=== PATIENT | male | born 1950 | race Caucasian/White ===

== ENCOUNTER 2016-12-22 17:09 | Emergency (ER) | payer OTHER ==
[2016-12-22 17:21] VITALS: RESP 18; O2SAT 99
[2016-12-22 17:46] LABS: BASO % 0.6 % (0.0-2.0); EOS # 0.1 K/uL (0.0-0.7); EOS % 1.4 % (0.0-4.0); HEMATOCRIT 38.6 % (35.0-51.0); LYMPH # 1.7 K/uL (1.0-4.3); LYMPH % 22.7 % (20.0-40.0); MEAN CELL VOLUME 83.7 fL (80.0-94.0); MEAN CORPUSCULAR HGB CONC 32.2 g/dL (33.0-37.0); MEAN PLATELET VOLUME 10.5 fL (7.2-11.7); MONO # 0.7 K/uL (0.0-0.8); MONO % 9.7 % (0.0-10.0); RED CELL DISTRIBUTION WIDTH 13.5 % (11.5-14.5); WHITE BLOOD COUNT 7.5 K/uL (4.8-10.8)
--- NOTE | 2016-12-22 17:46 | C.PDOC ---
History Of Present Illness 66-year-old male, presents to the emergency department with complaints of generalized weakness and nausea. Patient states that this morning he had coffee with sugar, and went to work. After work, he felt like his left arm was cold. Patient has a Hx of pre-diabetes and hypertension. Patient denies chest pain, shortness of breath, abdominal pain, fever, cough, dysuria, or any other associated symptoms. No other complaints at this time. Time Seen by Provider: 12/22/16 17:16 Chief Complaint (Nursing): Upper Extremity Problem/Injury History Per: Patient History/Exam Limitations: no limitations Onset/Duration Of Symptoms: Hrs Current Symptoms Are (Timing): Still Present Past Medical History Reviewed: Historical Data, Nursing Documentation, Vital Signs Vital Signs: Last Vital Signs Temp 97.4 F L 12/22/16 18:31 Pulse 75 12/22/16 18:31 Resp 18 12/22/16 18:31 BP 144/86 12/22/16 18:31 Pulse Ox 99 12/22/16 18:31 - Medical History PMH: Benign Prostatic Hyperplasia, Diabetes, HTN, Hypercholesterolemia Family History: States: No Known Family Hx - Social History Hx Tobacco Use: No Hx Alcohol Use: No Hx Substance Use: No - Immunization History Hx Tetanus Toxoid Vaccination: No Hx Influenza Vaccination: No Hx Pneumococcal Vaccination: No Review Of Systems Except As Marked, All Systems Reviewed And Found Negative. Constitutional: Positive for: Weakness. Negative for: Fever, Chills Cardiovascular: Negative for: Chest Pain, Palpitations Respiratory: Negative for: Cough, Shortness of Breath Gastrointestinal: Positive for: Nausea. Negative for: Abdominal Pain, Diarrhea , Melena Neurological: Positive for: Weakness. Negative for: Numbness, Headache, Dizziness Physical Exam - Physical Exam Appears: Non-toxic, No Acute Distress Skin: Warm, Dry, No Rash Head: Atraumatic, Normacephalic Eye(s): bilateral: Normal Inspection, PERRL Nose: Normal Oral Mucosa: Moist Lips: Normal Appearing Neck: Normal ROM Chest: Symmetrical Cardiovascular: Rhythm Regular, No Murmur Respiratory: Normal Breath Sounds, No Accessory Muscle Use Extremity: Normal ROM Neurological/Psych: Oriented x3 ED Course And Treatment - Laboratory Results Result Diagrams: 12/22/16 17:43 12/22/16 17:43 O2 Sat by Pulse Oximetry: 99 Progress Note: CMP, CBC, and Accuchek ordered and reviewed. Progress: Patient is resting comfortably, and is in no acute distress. Patient was instructed to follow up with physician/clinic in 1-2 days for further evaluation. Disposition Counseled Patient/Family Regarding: Diagnosis, Need For Followup - Disposition Referrals: Ky Cat [Medical Doctor] - Disposition: HOME/ ROUTINE Disposition Time: 18:15 Condition: STABLE Forms: General Discharge Instructions Print Language: ROMANIAN - POA Present On Arrival: None - Clinical Impression Clinical Impression: General medical exam - Scribe Statement The provider has reviewed the documentation as recorded by the Scribe Yoanna Miller All medical record entries made by the Scribe were at my direction and personally dictated by me. I have reviewed the chart and agree that the record accurately reflects my personal performance of the history, physical exam, medical decision making, and the department course for this patient. I have also personally directed, reviewed, and agree with the discharge instructions and disposition.
[2016-12-22 17:58] LABS: CHLORIDE 100 mmol/L (98-107); POTASSIUM 3.9 mmol/L (3.6-5.2); SODIUM 138 mmol/L (132-148)
[2016-12-22 18:00] LABS: ALB/GLOB RATIO 1.3 (1.0-2.1); ALKALINE PHOSPHATASE 75 U/L (38-126); AST/SGOT 40 U/L (17-59); BILIRUBIN,TOTAL 0.6 mg/dL (0.2-1.3); CARBON DIOXIDE 29 mmol/L (22-30); GFR AFRICAN-AMERICAN > 60; TOTAL PROTEIN 6.9 g/dL (6.3-8.3)
[2016-12-22 18:01] LABS: ALT/SGPT 33 U/L (21-72); BLOOD UREA NITROGEN 20 mg/dL (9-20); CALCIUM 8.9 mg/dl (8.6-10.4); GLUCOSE,RANDOM 131 mg/dL (75-110)
[2016-12-22 18:31] VITALS: BP 144/86; PULSE 75; TEMP 97.4
== END 2016-12-22 19:01 | disposition home or self-care (01) ==
LOC: C.ER 17:09
DX: Z00.00 Encounter for general adult medical examination without abnormal findings (principal)

== ENCOUNTER 2017-02-03 23:17 | Emergency (ER) | payer OTHER ==
[2017-02-03 23:36] VITALS: BP 157/77; PULSE 72; RESP 20; TEMP 98; O2SAT 96
[2017-02-04] MEDS ORDERED: Amoxicillin-Clav 875-125 mg Tab PO STA (00:09)
[2017-02-04] MEDS ORDERED: Amoxicillin-Clav 875-125 mg Tab PO ONE (00:16)
--- NOTE | 2017-02-04 00:27 | C.PDOC ---
History Of Present Illness 66 year old male who presents to the ER with a complaint of headache that he describes at facial pressure, associated with nasal congestion, for the past 2- 3 days. Patient states he took claritin and naprosyn with improvement; however, he still wanted to be evaluated. Denies fever, chills, nausea, or vomiting. Time Seen by Provider: 02/03/17 23:52 Chief Complaint (Nursing): Headache History Per: Patient History/Exam Limitations: no limitations Onset/Duration Of Symptoms: Days Current Symptoms Are (Timing): Still Present Preceeding Symptoms: None Associated Symptoms: denies: Nausea, Vomiting Recent travel outside of the [place]: No Past Medical History Reviewed: Historical Data, Nursing Documentation, Vital Signs Vital Signs: Last Vital Signs Temp 98 F 02/03/17 23:32 Pulse 72 02/03/17 23:32 Resp 20 02/03/17 23:32 BP 157/77 H 02/03/17 23:32 Pulse Ox 96 02/04/17 05:38 - Medical History PMH: Benign Prostatic Hyperplasia, Diabetes, HTN, Hypercholesterolemia Surgical History: No Surg Hx Family History: States: Unknown Family Hx - Social History Hx Tobacco Use: No Hx Alcohol Use: No Hx Substance Use: No - Immunization History Hx Tetanus Toxoid Vaccination: No Hx Influenza Vaccination: No Hx Pneumococcal Vaccination: No Review Of Systems Constitutional: Negative for: Fever, Chills ENT: Positive for: Nose Congestion Gastrointestinal: Negative for: Nausea, Vomiting Neurological: Positive for: Headache Physical Exam - Physical Exam Appears: Non-toxic, No Acute Distress Skin: Normal Color, Warm, Dry Head: Atraumatic, Normacephalic, Tenderness (to left sided frontal and maxillary sinuses) Eye(s): bilateral: Normal Inspection, PERRL, EOMI Ear(s): Bilateral: Normal Oral Mucosa: Moist Throat: Normal, No Erythema, No Exudate Neck: Normal, Supple Chest: Symmetrical, No Tenderness Cardiovascular: Rhythm Regular, No Murmur Respiratory: Normal Breath Sounds, No Rales, No Rhonchi, No Wheezing Neurological/Psych: Oriented x3, Normal Speech, Normal Cognition ED Course And Treatment O2 Sat by Pulse Oximetry: 96 (Room air) Pulse Ox Interpretation: Normal Medical Decision Making Medical Decision Making: Plan: * Augmentin * Prednisone On reevaluation, patient's pain has improved, Rx given and advised to follow up with PMD. Disposition - Disposition Referrals: Ky Cat [Medical Doctor] - Disposition: HOME/ ROUTINE Disposition Time: 00:25 Condition: FAIR Additional Instructions: Follow up with the medical doctor within 1-2 days. Return if worsened. Prescriptions: Amoxicillin/Clavulanate [Augmentin 875 MG-125 MG] 1 tab PO BID #14 tab Ibuprofen [Motrin] 600 mg PO TID #21 tab Loratadine [Claritin] 10 mg PO DAILY #10 tab predniSONE [Prednisone] 10 mg PO BID #10 tab Instructions: Sinusitis (ED) Forms: Motility Count (Citizen Of [place]) Print Language: ICELANDIC - Clinical Impression Clinical Impression: Sinusitis - Scribe Statement The provider has reviewed the documentation as recorded by the Scribjim Coyle All medical record entries made by the Jaidenibjim were at my direction and personally dictated by me. I have reviewed the chart and agree that the record accurately reflects my personal performance of the history, physical exam, medical decision making, and the department course for this patient. I have also personally directed, reviewed, and agree with the discharge instructions and disposition.
== END 2017-02-04 00:27 | disposition home or self-care (01) ==
LOC: C.ER 23:17
DX: J32.9 Chronic sinusitis, unspecified (principal)

== ENCOUNTER 2017-06-03 17:05 | Inpatient (IN) | payer OTHER, MEDICARE ==
[2017-06-03] MEDS ORDERED: Tetracaine 0.5% Ophth 2 ML BOTTLE OS ONE (17:16)
--- NOTE | 2017-06-03 17:16 | C.PDOC ---
History Of Present Illness 67M c/o left side headache he woke up with yesterday. it is still present but improved since he took aleve earlier. he denies any eye pain or visual disturbance to me. he hit the left side of his head [address] [place] and had a CT at that time but does not feel this is related. Time Seen by Provider: 06/03/17 17:16 Chief Complaint (Nursing): Eye Problem Past Medical History Vital Signs: Last Vital Signs Temp 98.2 F 06/12/17 08:36 Pulse 83 06/12/17 08:36 Resp 20 06/12/17 08:36 BP 122/80 06/12/17 08:36 Pulse Ox 95 06/12/17 08:36 - Medical History PMH: Benign Prostatic Hyperplasia, Diabetes, HTN, Hypercholesterolemia Family History: States: Other Other Family History: nc - Social History Hx Tobacco Use: No Hx Alcohol Use: No Hx Substance Use: No - Immunization History Hx Tetanus Toxoid Vaccination: No Hx Influenza Vaccination: No Hx Pneumococcal Vaccination: No Review Of Systems Except As Marked, All Systems Reviewed And Found Negative. Constitutional: Negative for: Fever, Chills, Weakness, Malaise Eyes: Negative for: Vision Change, Redness Respiratory: Negative for: Cough, Shortness of Breath Gastrointestinal: Negative for: Nausea, Vomiting Neurological: Positive for: Headache. Negative for: Weakness, Numbness, Confusion, Seizures, Altered Mental Status, Dizziness Physical Exam - Physical Exam Appears: Well, Non-toxic, No Acute Distress Skin: Warm, Dry Head: Atraumatic, No Tenderness Eye(s): bilateral: PERRL, EOMI Nose: No Epistaxis Oral Mucosa: Moist Lips: No Swelling Neck: No Midline Cervical Tenderness, Supple Cardiovascular: Rhythm Regular Respiratory: No Accessory Muscle Use Extremity: No Swelling Neurological/Psych: Oriented x3, Normal Cranial Nerves, No Cerebellar Signs, Normal Motor, Normal Sensation, Other (no focal deficits) Gait: Steady ED Course And Treatment - Laboratory Results Result Diagrams: 06/08/17 06:29 06/08/17 06:29 O2 Sat by Pulse Oximetry: 99 Medical Decision Making Medical Decision Makin disc NSGY Dr Mccall who reviewed CT- will see as consult rec repeat ct in am disc results and plan w the pts daughter over the phone and with the pt using lobster man CT Head EXAM: CT Head Without Intravenous Contrast CLINICAL HISTORY: 67 years old, male; Pain; Headache; Additional info: Left side headache TECHNIQUE: Axial computed tomography images of the head/brain without intravenous contrast. All CT scans at this facility use one or more dose reduction techniques, viz.: automated exposure control; ma/kV adjustment per patient size (including targeted exams where dose is matched to indication; i.e. head); or iterative reconstruction technique. Coronal and sagittal reformatted images were created and reviewed. COMPARISON: No relevant prior studies available. FINDINGS: Brain: Predominantly isodense subdural hematoma along LEFT cerebral convexity, up to 0.9 cm in width (axial image 35). Sulcal effacement. Patent basilar cisterns. No mass. Grossly preserved downing-white matter differentiation. Midline shift: 0.5 cm LEFT to RIGHT shift. Ventricles: No hydrocephalus. Bones/joints: No acute fracture. Soft tissues: Unremarkable. Sinuses: Scattered mild mucosal thickening of ethmoid sinuses. Mastoid air cells: No mastoid effusion. Orbits: Unremarkable as visualized. IMPRESSION: 1. LEFT subdural hematoma with subfalcine herniation. 2. Incidental/non-acute findings are described above. Disposition - Disposition Disposition: HOSPITALIZED Disposition Time: 18:51 Condition: STABLE - Clinical Impression Clinical Impression: Subdural hematoma
[2017-06-03] MEDS ORDERED: Fluorescein 1 mg Ophthalmic Strip ONE (17:27)
[2017-06-03] MEDS ORDERED: Tetracaine 0.5% Ophth (OR ONLY) ONE (17:27)
--- NOTE | 2017-06-03 18:48 | CT ---
EXAM: CT Head Without Intravenous Contrast CLINICAL HISTORY: 67 years old, male; Pain; Headache; Additional info: Left side headache TECHNIQUE: Axial computed tomography images of the head/brain without intravenous contrast. All CT scans at this facility use one or more dose reduction techniques, viz.: automated exposure control; ma/kV adjustment per patient size (including targeted exams where dose is matched to indication; i.e. head); or iterative reconstruction technique. Coronal and sagittal reformatted images were created and reviewed. COMPARISON: No relevant prior studies available. FINDINGS: Brain: Predominantly isodense subdural hematoma along LEFT cerebral convexity, up to 0.9 cm in width (axial image 35). Sulcal effacement. Patent basilar cisterns. No mass. Grossly preserved downing-white matter differentiation. Midline shift: 0.5 cm LEFT to RIGHT shift. Ventricles: No hydrocephalus. Bones/joints: No acute fracture. Soft tissues: Unremarkable. Sinuses: Scattered mild mucosal thickening of ethmoid sinuses. Mastoid air cells: No mastoid effusion. Orbits: Unremarkable as visualized. IMPRESSION: 1. LEFT subdural hematoma with subfalcine herniation. 2. Incidental/non-acute findings are described above.
[2017-06-03 18:55] LABS: BASO % 0.4 % (0.0-2.0); EOS # 0.2 K/uL (0.0-0.7); EOS % 2.5 % (0.0-4.0); HEMATOCRIT 38.2 % (35.0-51.0); LYMPH # 1.6 K/uL (1.0-4.3); LYMPH % 21.5 % (20.0-40.0); MEAN CELL VOLUME 84.5 fL (80.0-94.0); MEAN CORPUSCULAR HEMOGLOBIN 27.4 pg (27.0-31.0); MEAN CORPUSCULAR HGB CONC 32.4 g/dL (33.0-37.0); MEAN PLATELET VOLUME 12.5 fL (7.2-11.7); MONO # 0.6 K/uL (0.0-0.8); MONO % 8.8 % (0.0-10.0); RED CELL DISTRIBUTION WIDTH 14.1 % (11.5-14.5); WHITE BLOOD COUNT 7.2 K/uL (4.8-10.8)
[2017-06-03 19:01] LABS: ALKALINE PHOSPHATASE 88 U/L (38-126); ALT/SGPT 34 U/L (21-72); AST/SGOT 23 U/L (17-59); BILIRUBIN,TOTAL 0.5 mg/dL (0.2-1.3); BLOOD UREA NITROGEN 18 mg/dL (9-20); CALCIUM 8.7 mg/dl (8.6-10.4); CARBON DIOXIDE 29 mmol/L (22-30); CHLORIDE 99 mmol/L (98-107); GFR AFRICAN-AMERICAN > 60; GLUCOSE,RANDOM 171 mg/dL (75-110); SODIUM 134 mmol/L (132-148); TOTAL PROTEIN 6.2 g/dL (6.3-8.3)
[2017-06-03 19:02] LABS: INR 1.3
[2017-06-03 19:05] LABS: ALB/GLOB RATIO 1.4 (1.0-2.1)
[2017-06-03] MEDS: Sodium Chloride 0.9% 1,000 ML IV SCH (19:33)
[2017-06-03] MEDS ORDERED: Sodium Chloride 0.9% 1,000 ML ONE (19:40)
[2017-06-04] MEDS ORDERED: Sodium Chloride 0.9% 1,000 ML ONE (05:08)
[2017-06-04] MEDS: Sodium Chloride 0.9% 1,000 ML IV SCH ×2 (06:53→22:17)
[2017-06-04 06:56] LABS: ALCOHOL SERUM < 10 mg/dl (0-10); ALKALINE PHOSPHATASE 71 U/L (38-126); ALT/SGPT 34 U/L (21-72); AST/SGOT 21 U/L (17-59); BILIRUBIN,TOTAL 0.7 mg/dL (0.2-1.3); CHOLESTEROL 190 mg/dL (0-199); TOTAL PROTEIN 5.9 g/dL (6.3-8.3)
[2017-06-04 07:24] LABS: FREE T4 0.86 ng/dL (0.78-2.19)
[2017-06-04 07:38] LABS: THYROID STIMULATING HORMONE 2.2 mIU/L (0.46-4.68)
[2017-06-04 07:54] LABS: ALB/GLOB RATIO 1.3 (1.0-2.1); BILIRUBIN,DIRECT 0.5 mg/dL (0.0-0.4)
--- NOTE | 2017-06-04 11:09 | CT ---
PROCEDURE: CT scan brain dated 06/04/2017. HISTORY: Subdural hematoma COMPARISON: Comparison made with CT scan of brain dated 05/30/2017. TECHNIQUE: Total exam DLP = 86.44 mGy-cm. FINDINGS: Current study reveals interval slight decrease size right-sided subdural hematoma with fluid - fluid level, more hyperdense packed red cells layering along the dependent portion of the collection and serum occupying the nondependent portion of collection. . There is mild mass effect with compression of the frontoparietal lobes former more so than latter. There is also some extension of subdural hematoma into the left lateral margin of middle cranial fossa a fracture left well. There is mild compression of left frontal horn with shift of the septum pellucidum 6.6 mm to the right (slightly increased from prior exam). . Slight localized dilatation of the temporal horn likely due partial trapping. . . There are no calvarial fractures. Paranasal and mastoid air complexes are clear. Orbits and contents unremarkable. IMPRESSION: Interval slight see decrease in size of left-sided subdural hematoma. Collection exhibits a fluid - fluid level with packed red cells layering the portion of the collection and serum occupying the nondependent portion of the collection. . The collection exerts mass effect which appears have increased slightly with compression of the left frontoparietal lobe occluded left lateral ventricle and shift of the septum pellucidum from left to right estimated at approximately 6.6 mm. There appears be mild localized with trapping of the left temporal horn.
[2017-06-04 11:20] LABS: HOMOCYSTEINE 5.6 umol/L (6.6-14.8)
[2017-06-04] MEDS: Pantoprazole 40 mg EC Tab PO SCH (12:15)
--- NOTE | 2017-06-04 12:51 | MRI ---
PROCEDURE: MRI BRAIN WITHOUT CONTRAST HISTORY: ich COMPARISON: Comparison is made to the previous CT dated 06/04/2017 and 05/2020 TECHNIQUE: Multiplanar, multisequence MR images of the brain were obtained without intravenous contrast enhancement. FINDINGS: HEMORRHAGE: Again seen is left convexity heterogeneous signal subdural hematoma. The posterior portion of the hematoma demonstrate foci of hyperintense T1 signal. The mid and anterior portion of the left convexity subdural demonstrate hyperintense T2 and isointense T1 signal. Findings suggestive of subacute on chronic subdural hematoma. DWI: No evidence of an acute or early subacute infarction. BRAIN PARENCHYMA: There is mass effect on the left brain due to subdural hematoma associated with 5.5 millimeter [id number] midline shift. There is effacement of the left brain sulci due to mass effect by that subdural hematoma. No evidence of mass lesion. There are few scattered foci of hyperintense T2 and hypointense T1 and FLAIR signal noted in the white matter more prominent at the left frontal lobe may represent dilated perivascular space. There are also few subcortical small foci of hyperintense T2 and FLAIR signal and isointense T1 signal may represent mild chronic microvascular ischemic disease. VENTRICLES: Unremarkable. No hydrocephalus. CRANIUM: Unremarkable. ORBITS: Grossly unremarkable. PARANASAL SINUSES/MASTOIDS: Clear VASCULAR SYSTEM: Skull base flow voids intact. OTHER FINDINGS: None. IMPRESSION: Heterogeneous signal left convexity subdural hematoma with maximum thickness of 10 millimeter associated with mass effect on the left brain and 5.5 millimeter [id number] midline shift. The signal characteristic of the left convexity subdural hematoma suggestive of subacute on chronic hematoma. No evidence of acute infarction or mass lesion.
--- NOTE | 2017-06-04 13:02 | VASCLAB ---
PROCEDURE: HISTORY: Head trauma COMPARISON: None available. TECHNIQUE: Grayscale and duplex Doppler evaluation of the cervical carotid and vertebral arteries were performed. The common carotid, carotid bifurcations and cervical Internal Carotid Artery (ICA) and proximal External Carotid Artery (ECA) were evaluated. The vertebral arteries were evaluated for gross patency and flow direction. Report prepared by DEVON Ambrocio FINDINGS: RIGHT CAROTID ARTERIES: 1. Common Carotid Artery: No significant focal plaque formation of the right common carotid artery. Maximum Peak Systolic velocity: 83 cm/sec: End-diastolic velocity 16 cm/sec. 2. Carotid Bifurcation: Homogeneous plaque formation. Maximum Peak Systolic velocity: 64 cm/sec: End-diastolic velocity 14 cm/sec. 3. Internal Carotid Artery: Plaque description: Homogeneous 3.1. Proximal Segment: Peak systolic velocity 78 cm/sec: End-diastolic velocity 28 cm/sec - % stenosis 0-15% 3.2. Middle Segment: Peak systolic velocity 127 cm/sec: End-diastolic velocity 42 cm/sec - % stenosis 0-15% 3.3. Distal Segment: Peak systolic velocity 71 cm/sec: End-diastolic velocity 27 cm/sec - % stenosis 0-15% 4. External Carotid Artery: No significant focal plaque formation. Peak systolic velocity 80 cm/sec 5. ICA/CCA Ratio: 2.0 LEFT CAROTID ARTERIES: 1. Common Carotid Artery: No significant focal plaque formation of the left common carotid artery. Maximum Peak Systolic velocity: 85 cm/sec: End-diastolic velocity 23 cm/sec. 2. Carotid Bifurcation: Homogeneous plaque formation. Maximum Peak Systolic velocity: 63 cm/sec: End-diastolic velocity 18 cm/sec. 3. Internal Carotid Artery: Plaque description: Homogeneous 3.1. Proximal Segment: Peak systolic velocity 71 cm/sec: End-diastolic velocity 13 cm/sec - % stenosis 0-15% 3.2. Middle Segment: Peak systolic velocity 77 cm/sec: End-diastolic velocity 25 cm/sec - % stenosis 0-15% 3.3. Distal Segment: Peak systolic velocity 75 cm/sec: End-diastolic velocity 27 cm/sec - % stenosis 0-15% 4. External Carotid Artery: No significant focal plaque formation. Peak systolic velocity 60 cm/sec 5. ICA/CCA Ratio: 0.9 VERTEBRAL ARTERIES: 1. Right Vertebral Artery: The right vertebral artery flow direction is antegrade. 2. Left Vertebral Artery: The left vertebral artery flow direction is antegrade. OTHER FINDINGS: 1. Right Brachial Blood pressure: 160 mmHg. 2. Left Brachial Blood pressure: 135 mmHg. IMPRESSION: RIGHT: Duplex scan does not suggest hemodynamically significant stenosis of the right extracranial carotid arteries. LEFT: Duplex scan does not suggest hemodynamically significant stenosis of the left extracranial carotid arteries.
--- NOTE | 2017-06-04 16:25 | CON ---
DATE: 06/04/2017 NEUROLOGICAL INITIAL CONSULTATION LOCATION: The patient is in emergency room, bed 1. REASON FOR CONSULTATION: Headache. CHIEF COMPLAINT: The patient was brought into [facility] with a history of 2 days headache, which was 8/10 and they did CAT scan of the head, which was abnormal, and from neurological point of view, I was called into evaluate him for further management. HISTORY OF PRESENT ILLNESS: Mr. Han Wong is a 67-year-old, right-handed, male, in usual state of health; since last Sunday, the patient developed headache, which is 8/10 in pain scale, not associating with nausea or vomiting, visual or bulbar dysfunction. However, the headache, which he never had it before in the past, has been disabling him. No history of fall, no history of trauma, no history of involuntary movements associating with his headache. PAST MEDICAL HISTORY: Includes hypertension, prostate hypertrophy. PERSONAL HISTORY: He denies smoking, alcohol use. ALLERGIES: NO KNOWN ALLERGIES. REVIEW OF SYSTEMS: A 12-point systems had been reviewed; from neuro, new headache. MEDICATIONS: Losartan, Proscar. PHYSICAL EXAMINATION: VITAL SIGNS: Blood pressure 139/77, mean arterial pressure of 97, respiratory rate 18, temperature 98.4, pulse 69, regular. NECK: Supple. No carotid bruit. HEART: Sounds are regular. CHEST: Fair air entry. EXTREMITIES: No edema in legs. NEUROLOGICAL: Mental status examination: He is awake, alert, oriented to person, place and time. Speech is clear. Naming, repetition, fluency, comprehension, all within normal. Cranial nerves: Visual field intact. Pupils reactive to light. Extraocular movement normal. No nystagmus. No facial sensory deficit. No facial asymmetry. Hearing is normal. Tongue is midline. Good gag. Fundus examination: Disc is sharp. No abnormal blood vessels noted. Motor: Outstretched hand with eyes closed, no drift noted. Power is symmetric on either side. Deep tendon reflexes, biceps, brachialis, triceps are 2+ on either side, both knees are 1+, both ankles are absent. Plantars are downgoing. Sensory: Grossly intact. Coordination: Nngfnd-dspf-hpybnp test is intact. Gait normal. WORKUP: CT of the head reviewed by me. There is a left subdural hematoma, which seems to be subacute process with the size of less than a centimeter with mild subfalcine herniation to the right. EKG: Normal sinus rhythm. BLOOD WORKUP: WBC 7.2, hemoglobin 12.4, hematocrit is 38.2, platelets 131. PT 14.3, INR 1.3, PTT 31. Sodium 134, potassium 4.4, chloride 99, bicarbonate 29, BUN 18, GFR more than 60, glucose 171, calcium 8.7, protein 6.2. CONCLUSION: Mr. Han Wong is presenting with headache with abnormal CT of subdural hematoma without any long tract sign. RECOMMENDATION: 1. Short dose of Decadron to decrease the intracranial pressure. 2. MRI of the brain to assess the bleeding as well as to rule out any intracranial lesion. 3. Carotid Doppler and drug tox screen including alcohol level should be done. The patient will be followed closely while he is in the hospital. Seven Greene MD MTDD
--- NOTE | 2017-06-04 17:49 | CARD ---
APPROVED REPORT EKG Measurement Heart [id number] <Conclusion> Sinus rhythm with 1st degree AV block Otherwise normal ECG
--- NOTE | 2017-06-04 19:12 | CARD ---
APPROVED REPORT EXAM: Two-dimensional and M-mode echocardiogram with Doppler and color Doppler. Other Information Quality : GoodRhythm : INDICATION Dizziness and Vertigo RISK FACTORS Hypertension M-Mode DIMENSIONS RVDd1.22 (2.1-3.2cm)Left Atrium (MM)4.02 (2.5-4.0cm) IVSd0.74 (0.7-1.1cm)Aortic Root3.79 (2.2-3.7cm) LVDd4.94 (4.0-5.6cm)Aortic Cusp Exc.1.68 (1.5-2.0cm) PWd0.89 (0.7-1.1cm)FS (%) 34 % LVDs3.28 (2.0-3.8cm)LVEF (%)62 (>50%) Mitral Valve MV E Pvhfjekq37.3cm/sMV A Rlztjypt35.1cm/sE/A ratio1.1 TDI E/Lateral E'0.0E/Medial E'0.0 Tricuspid Valve TR Peak [id number]/sTR Peak Gr.[id number] LEFT VENTRICLE The left ventricle is normal size. There is normal left ventricular wall thickness. The Ejection Fraction is 60-65%. There is normal LV segmental wall motion. The left ventricular diastolic function is normal. RIGHT VENTRICLE The right ventricle is normal size. The right ventricular systolic function is normal. ATRIA The left atrium is mildly dilated. The right atrium size is normal. The interatrial septum is intact with no evidence for an atrial septal defect. AORTIC VALVE The aortic valve is normal in structure. The aortic valve is trileaflet. The aortic valve is mildly sclerotic. There is mild aortic regurgitation. MITRAL VALVE The mitral valve is normal in structure. Mitral regurgitation is mild. TRICUSPID VALVE The tricuspid valve is normal in structure. There is mild tricuspid regurgitation. Right ventricular systolic pressure is estimated at 35 mmHg. There is mild pulmonary hypertension. PULMONIC VALVE The pulmonary valve is normal in structure. There is mild pulmonic valvular regurgitation. GREAT VESSELS The aortic root is normal size. The aortic root displays mild sclerocalcific changes of the aortic root. The IVC is normal in size and collapses >50% with inspiration. PERICARDIAL EFFUSION There is no pericardial effusion. <Conclusion> The left ventricle is normal size. The Ejection Fraction is 60-65%. The left ventricular diastolic function is normal. The left atrium is mildly dilated. There is mild aortic regurgitation. Mitral regurgitation is mild. There is mild tricuspid regurgitation. Right ventricular systolic pressure is estimated at 35 mmHg. There is mild pulmonary hypertension. The aortic root is normal size. The aortic root displays mild sclerocalcific changes of the aortic root.
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
[2017-06-05] MEDS: Pantoprazole 40 mg EC Tab PO SCH (10:45)
--- NOTE | 2017-06-05 10:45 | EEG ---
DATE: 06/04/2017 This is a 16-channel electroencephalogram of an awake and adult. During the study, photic stimulation was performed. Hyperventilation was not performed. The resting electroencephalogram consists of 30 to 40 microvolts, diffuse 7 to 8 Hz high theta activities mixed with low alpha activities seen at parietal and occipital leads. Anteriorly, fast activity superimposed with 2 to 3 Hz delta activities seen. There is rhythmic polyspike and wave activities noted in bilateral cortical leads that lasted for about 2 to 2-1/2 seconds, followed with generalized slow activities, which consistent with possible epileptiform activities. The photic stimulation did not evoke driving response noted at 2-20 Hz. IMPRESSION: This is an abnormal electroencephalogram because of persistent slow activities for his age consistent with the bilateral cerebral dysfunction which is superimposed with brief period of generalized polyspike and wave activities consistent with epileptiform activities. Please correlate the findings with the neurological and radiological studies. If necessary, the patient can be benefitted of doing extended hour ambulatory electroencephalogram to further localizing his electrophysiological abnormal activities. This study can be done as outpatient. Seven Greene MD
[2017-06-05] MEDS: Sodium Chloride 0.9% 1,000 ML IV SCH ×2 (10:52→19:15)
--- NOTE | 2017-06-05 12:21 | PN ---
DATE: 06/05/2017 NEUROLOGICAL PROBLEM: Subdural hematoma with mild mass effect and headache. PHYSICAL EXAMINATION: VITAL SIGNS: Blood pressure 132/72, mean arterial pressure of 92, respiratory rate 16, temperature afebrile. The patient is asymptomatic at present. He denies complaints of headache. He is communicable only in [place]. His MRI of the brain consistent with subacute process of subdural hematoma without any acute bleed noted. The patient was started on short course of steroids to bring down the swelling and ICP. His electroencephalogram is reviewed that generalized polyspike and wave activities, briefly noted about 2 to 3 seconds. Considering his abnormal EEG, the patient was placed on levetiracetam 500 mg twice a day. From neurological point of view, the patient is stable. Fall precautions should be followed . The patient should have video electroencephalogram which can be done as an outpatient for further localizing his electrographic activities during his daytime as well as during sleep. Seven Greene MD [facility]
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
--- NOTE | 2017-06-05 12:45 | CP.PCM.PN ---
Subjective - Date & Time of Evaluation Date of Evaluation: 06/05/17 Time of Evaluation: 12:44 - Subjective Subjective: pt and family agreeable to surgery needed med clearance have him [facility] for surgery tomorrow Objective - Vital Signs/Intake and Output Vital Signs (last 24 hours): Temp Pulse Resp BP Pulse Ox 97.4 F L 70 20 139/78 96 06/05/17 09:02 06/05/17 09:02 06/05/17 09:02 06/05/17 09:02 06/05/17 09:02 Intake and Output: 06/05/17 06/05/17 06:59 18:59 Intake Total 664 Output Total 1000 Balance -336 - Medications Medications: Current Medications Dexamethasone (Decadron) 4 mg PO Q8H [facility] Stop: 06/07/17 06:50 Last Admin: 06/05/17 10:45 Dose: 4 mg Finasteride (Proscar) 5 mg PO DAILY [facility] Last Admin: 06/05/17 10:52 Dose: 5 mg Hydrochlorothiazide (Microzide) 12.5 mg PO DAILY [facility] Last Admin: 06/05/17 10:45 Dose: 12.5 mg Sodium Chloride (Sodium Chloride 0.9%) 1,000 mls @ 83 mls/hr IV .Q12H3M [facility] Last Admin: 06/05/17 10:52 Dose: 83 mls/hr Levetiracetam (Keppra) 500 mg PO BID [facility] Last Admin: 06/05/17 10:45 Dose: 500 mg Losartan Potassium (Cozaar) 50 mg PO DAILY [facility] Last Admin: 06/05/17 10:45 Dose: 50 mg Pantoprazole Sodium (Protonix Ec Tab) 40 mg PO DAILY [facility] Last Admin: 06/05/17 10:45 Dose: 40 mg - Labs Labs: 06/03/17 18:43 06/03/17 18:43 PT 14.3 SECONDS (9.7-12.2) H 06/03/17 18:43 INR 1.3 06/03/17 18:43 APTT 31 SECONDS (21-34) 06/03/17 18:43
--- NOTE | 2017-06-05 16:22 | CP.PCM.PN ---
Subjective - Date & Time of Evaluation Date of Evaluation: 06/05/17 Time of Evaluation: 13:00 - Subjective Subjective: clinically same Objective - Vital Signs/Intake and Output Vital Signs (last 24 hours): Temp Pulse Resp BP Pulse Ox 97.7 F 69 20 119/66 97 06/05/17 15:15 06/05/17 15:15 06/05/17 15:15 06/05/17 15:15 06/05/17 15:15 Intake and Output: 06/05/17 06/05/17 06:59 18:59 Intake Total 664 Output Total 1000 Balance -336 - Medications Medications: Current Medications Dexamethasone (Decadron) 4 mg PO Q8H [facility] Stop: 06/07/17 06:50 Last Admin: 06/05/17 16:05 Dose: 4 mg Finasteride (Proscar) 5 mg PO DAILY [facility] Last Admin: 06/05/17 10:52 Dose: 5 mg Hydrochlorothiazide (Microzide) 12.5 mg PO DAILY [facility] Last Admin: 06/05/17 10:45 Dose: 12.5 mg Sodium Chloride (Sodium Chloride 0.9%) 1,000 mls @ 83 mls/hr IV .Q12H3M [facility] Last Admin: 06/05/17 10:52 Dose: 83 mls/hr Levetiracetam (Keppra) 500 mg PO BID [facility] Last Admin: 06/05/17 10:45 Dose: 500 mg Losartan Potassium (Cozaar) 50 mg PO DAILY [facility] Last Admin: 06/05/17 10:45 Dose: 50 mg Pantoprazole Sodium (Protonix Ec Tab) 40 mg PO DAILY [facility] Last Admin: 06/05/17 10:45 Dose: 40 mg - Labs Labs: 06/03/17 18:43 06/03/17 18:43 PT 14.3 SECONDS (9.7-12.2) H 06/03/17 18:43 INR 1.3 06/03/17 18:43 APTT 31 SECONDS (21-34) 06/03/17 18:43 - Constitutional Appears: Well - Head Exam Head Exam: ATRAUMATIC, NORMAL INSPECTION, NORMOCEPHALIC - Eye Exam Eye Exam: EOMI, Normal appearance, PERRL Pupil Exam: NORMAL ACCOMODATION, PERRL - ENT Exam ENT Exam: Mucous Membranes Moist, Normal Exam - Neck Exam Neck Exam: Full ROM, Normal Inspection. absent: Lymphadenopathy - Respiratory Exam Respiratory Exam: Clear to Ausculation Bilateral, NORMAL BREATHING PATTERN - Cardiovascular Exam Cardiovascular Exam: REGULAR RHYTHM, +S1, +S2. absent: Murmur - GI/Abdominal Exam GI & Abdominal Exam: Soft, Normal Bowel Sounds. absent: Tenderness - Rectal Exam Rectal Exam: Deferred - Extremities Exam Extremities Exam: Full ROM, Normal Capillary Refill, Normal Inspection. absent : Joint Swelling, Pedal Edema - Back Exam Back Exam: NORMAL INSPECTION Assessment and Plan (1) Subdural hematoma Status: Acute (2) Dizziness Status: Acute (3) General medical exam Status: Acute (4) History of hypertension Status: Acute (5) Sinusitis Status: Acute (6) Uncontrolled hypertension Status: Acute (7) Upper extremity pain Status: Acute (8) Viral exanthem Status: Acute (9) Viral syndrome Status: Acute - Assessment and Plan (Free Text) Plan: Patient examined. EKG suggestive of first-degree AV block. CT had suggestive of left subdural hematoma with subfalcine herniation. MRI brain suggestive of subdural hematoma with maximum thickness of 10 mm with mass-effect on the left brain and 5.5 mm left to right midline shift suggestive of subacute on chronic hematoma. EEG suggestive of persistent slow activities for is it consistent with bilateral cerebellar dysfunction. 2D echo suggestive of EF of 60% left atrial dilatation, mild AR, mild MR, mild TR, RVSP 35 mmHg, mild pulmonary hypertension. Carotid duplex scan does not suggest any clinically significant stenosis. Continue hydrochlorothiazide and levetiracetam. Continue losartan. Continue supportive care.
[2017-06-06] MEDS: Pantoprazole 40 mg EC Tab PO SCH (09:10)
[2017-06-06] MEDS: Sodium Chloride 0.9% 1,000 ML IV SCH (09:11)
[2017-06-06] MEDS ORDERED: cefTRIAXone IV 1 gm in Dextros 0 ML IVPB ONE (10:59)
[2017-06-06] MEDS ORDERED: Thrombin Topical 20,000 Intl Units Spray Kit TOP ONE (10:59)
[2017-06-06] MEDS ORDERED: Bacitracin Ointment 30 GM TUBE ONE (10:59)
[2017-06-06] MEDS ORDERED: Absorbable Gelatin Sponge Size 100 ONE (10:59)
[2017-06-06] MEDS ORDERED: Thrombin Topical 5,000 IU Spray Kit ONE (11:00)
[2017-06-06] MEDS ORDERED: Lidocaine 1%/Epinephrine 1:100000 30 ml vial IJ ONE (11:07)
[2017-06-06] MEDS ORDERED: Propofol 10 mg/ml Inj (20 ML) ONE ×2 (12:02→12:57)
[2017-06-06] MEDS ORDERED: Midazolam 2 MG/2 ML VIAL ONE (12:02)
[2017-06-06] MEDS ORDERED: Vancomycin 1 gm/D5W 200 ml 1 GM/200 ML BAG IVPB ONE (12:30)
[2017-06-06] MEDS ORDERED: Rocuronium 10 mg/ml (5 ml) ONE (12:30)
[2017-06-06] MEDS ORDERED: Succinylcholine Chloride 20 mg/ml Syr (5 ml) IV ONE (12:30)
[2017-06-06] MEDS ORDERED: Lactated Ringer's 1,000 ML IV ONE ×2 (12:40→15:40)
[2017-06-06] MEDS ORDERED: Sodium Chloride 0.9% 1,000 ML IV ONE (12:40)
[2017-06-06] MEDS ORDERED: Neostigmine Methylsulfate 3mg/3ml Syringe IV ONE (13:28)
[2017-06-06] MEDS ORDERED: ePHEDrine 50 mg/ml Inj ONE (13:30)
[2017-06-06] MEDS ORDERED: HYDROmorphone 0.5 mg/0.5 ml ISec IVP PRN (14:26)
[2017-06-06] MEDS: Lactated Ringer's 1,000 ML IV SCH (17:00)
[2017-06-06] MEDS: SODIUM CHLORIDE 0.9% IVPB SCH (18:37)
[2017-06-06] MEDS: LEVETIRACETAM IVPB SCH (18:37)
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
--- NOTE | 2017-06-06 19:06 | CP.PCM.PN ---
Subjective - Date & Time of Evaluation Date of Evaluation: 06/06/17 Time of Evaluation: 13:40 - Subjective Subjective: clinically same Objective - Vital Signs/Intake and Output Vital Signs (last 24 hours): Temp Pulse Resp BP Pulse Ox 98.8 F 57 L 12 129/65 100 06/06/17 16:30 06/06/17 16:30 06/06/17 16:30 06/06/17 16:30 06/06/17 16:30 Intake and Output: 06/06/17 06/07/17 18:59 06:59 Intake Total 925 Output Total 500 Balance 425 - Medications Medications: Current Medications Dexamethasone (Decadron) 4 mg PO Q8H [facility] Stop: 06/07/17 06:50 Last Admin: 06/06/17 17:32 Dose: Not Given Finasteride (Proscar) 5 mg PO DAILY [facility] Last Admin: 06/06/17 09:10 Dose: Not Given Hydrochlorothiazide (Microzide) 12.5 mg PO DAILY [facility] Last Admin: 06/06/17 09:09 Dose: Not Given Sodium Chloride (Sodium Chloride 0.9%) 1,000 mls @ 83 mls/hr IV .Q12H3M [facility] Last Admin: 06/06/17 09:11 Dose: Not Given Levetiracetam 500 mg/ Sodium (Chloride) 155 mls @ 500 mls/hr IVPB Q12H [facility] Last Admin: 06/06/17 18:37 Dose: 500 mls/hr Lactated Ringer's (Lactated Ringer's) 1,000 mls @ 100 mls/hr IV .Q10H [facility] Losartan Potassium (Cozaar) 50 mg PO DAILY [facility] Last Admin: 06/06/17 09:09 Dose: Not Given Pantoprazole Sodium (Protonix Ec Tab) 40 mg PO DAILY [facility] Last Admin: 06/06/17 09:10 Dose: Not Given - Labs Labs: 06/03/17 18:43 06/03/17 18:43 PT 14.3 SECONDS (9.7-12.2) H 06/03/17 18:43 INR 1.3 06/03/17 18:43 APTT 31 SECONDS (21-34) 06/03/17 18:43 - Constitutional Appears: Well - Head Exam Head Exam: ATRAUMATIC, NORMAL INSPECTION, NORMOCEPHALIC - Eye Exam Eye Exam: EOMI, Normal appearance, PERRL Pupil Exam: NORMAL ACCOMODATION, PERRL - ENT Exam ENT Exam: Mucous Membranes Moist, Normal Exam - Neck Exam Neck Exam: Full ROM, Normal Inspection. absent: Lymphadenopathy - Respiratory Exam Respiratory Exam: Clear to Ausculation Bilateral, NORMAL BREATHING PATTERN - Cardiovascular Exam Cardiovascular Exam: REGULAR RHYTHM, +S1, +S2. absent: Murmur - GI/Abdominal Exam GI & Abdominal Exam: Soft, Normal Bowel Sounds. absent: Tenderness - Rectal Exam Rectal Exam: Deferred - Extremities Exam Extremities Exam: Full ROM, Normal Capillary Refill, Normal Inspection. absent : Joint Swelling, Pedal Edema - Back Exam Back Exam: NORMAL INSPECTION Assessment and Plan (1) Subdural hematoma Status: Acute (2) Dizziness Status: Acute (3) General medical exam Status: Acute (4) History of hypertension Status: Acute (5) Sinusitis Status: Acute (6) Uncontrolled hypertension Status: Acute (7) Upper extremity pain Status: Acute (8) Viral exanthem Status: Acute (9) Viral syndrome Status: Acute - Assessment and Plan (Free Text) Plan: Patient examined. Patient better. Continue antihypertensive medications, levetiracetam and finasteride. Continue supportive care.
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
[2017-06-07] MEDS: Lactated Ringer's 1,000 ML IV SCH ×2 (03:45→13:13)
[2017-06-07] MEDS: LEVETIRACETAM IVPB SCH ×2 (06:01→17:20)
[2017-06-07] MEDS: SODIUM CHLORIDE 0.9% IVPB SCH ×2 (06:01→17:20)
[2017-06-07 07:29] LABS: BASO % 0.2 % (0.0-2.0); HEMATOCRIT 36.8 % (35.0-51.0); LYMPH # 1.5 K/uL (1.0-4.3); LYMPH % 8.6 % (20.0-40.0); MEAN CELL VOLUME 84.4 fL (80.0-94.0); MEAN CORPUSCULAR HEMOGLOBIN 27.3 pg (27.0-31.0); MEAN CORPUSCULAR HGB CONC 32.4 g/dL (33.0-37.0); MEAN PLATELET VOLUME 11.5 fL (7.2-11.7); MONO # 1.6 K/uL (0.0-0.8); MONO % 9.2 % (0.0-10.0); PLATELET COUNT 143 K/uL (130-400); RED CELL DISTRIBUTION WIDTH 14.4 % (11.5-14.5)
[2017-06-07 08:42] LABS: ALB/GLOB RATIO 1.3 (1.0-2.1); ALKALINE PHOSPHATASE 61 U/L (38-126); ALT/SGPT 40 U/L (21-72); AST/SGOT 24 U/L (17-59); BILIRUBIN,TOTAL 0.8 mg/dL (0.2-1.3); BLOOD UREA NITROGEN 22 mg/dL (9-20); CALCIUM 7.9 mg/dl (8.6-10.4); CARBON DIOXIDE 31 mmol/L (22-30); CHLORIDE 100 mmol/L (98-107); GFR AFRICAN-AMERICAN > 60; GLUCOSE,RANDOM 103 mg/dL (75-110); MAGNESIUM 1.9 mg/dL (1.6-2.3); PHOSPHOROUS 3.1 mg/dL (2.5-4.5); POTASSIUM 4.5 mmol/L (3.6-5.2); SODIUM 140 mmol/L (132-148); TOTAL PROTEIN 5.8 g/dL (6.3-8.3)
[2017-06-07 09:04] LABS: NEUTROPHIL 78 % (50-75); TOTAL CELLS COUNTED 100
[2017-06-07] MEDS: Pantoprazole 40 mg EC Tab PO SCH (10:41)
--- NOTE | 2017-06-07 11:04 | CP.PCM.PN ---
Subjective - Date & Time of Evaluation Date of Evaluation: 06/07/17 Time of Evaluation: 11:04 - Subjective Subjective: No cardiac complaints NSR on TELE BP vitals appropriate s/p evacuation of a chronic subdural hematoma with mass effect Objective - Vital Signs/Intake and Output Vital Signs (last 24 hours): Temp Pulse Resp BP Pulse Ox 98.8 F 57 L 12 129/65 100 06/06/17 16:30 06/06/17 16:30 06/06/17 16:30 06/06/17 16:30 06/06/17 16:30 Intake and Output: 06/07/17 06/07/17 06:59 18:59 Intake Total 1150 400 Output Total 180 1020 Balance 970 -620 - Medications Medications: Current Medications Finasteride (Proscar) 5 mg PO DAILY REPLACED BY [facility] Last Admin: 06/07/17 10:41 Dose: 5 mg Hydrochlorothiazide (Microzide) 12.5 mg PO DAILY [facility]PL[facility] BY [facility] Last Admin: 06/06/17 09:09 Dose: Not Given Levetiracetam 500 mg/ Sodium (Chloride) 155 mls @ 500 mls/hr IVPB Q12H REPLACED BY [facility] Last Admin: 06/07/17 06:01 Dose: 500 mls/hr Lactated Ringer's (Lactated Ringer's) 1,000 mls @ 100 mls/hr IV .Q10H REPLACED BY [facility] Last Admin: 06/07/17 03:45 Dose: 100 mls/hr Losartan Potassium (Cozaar) 50 mg PO DAILY [facility]PLACED BY [facility] Last Admin: 06/07/17 10:41 Dose: 50 mg Morphine Sulfate (Morphine) 2 mg IVP Q3 PRN PRN Reason: Pain, moderate (4-7) Last Admin: 06/07/17 04:16 Dose: 2 mg Pantoprazole Sodium (Protonix Ec Tab) 40 mg PO DAILY REPLAC[facility] BY [facility] Last Admin: 06/07/17 10:41 Dose: 40 mg - Labs Labs: 06/07/17 07:07 06/07/17 07:07 PT 14.3 SECONDS (9.7-12.2) H 06/03/17 18:43 INR 1.3 06/03/17 18:43 APTT 31 SECONDS (21-34) 06/03/17 18:43 - Constitutional Appears: No Acute Distress - Head Exam Head Exam: ATRAUMATIC, NORMAL INSPECTION, NORMOCEPHALIC - Respiratory Exam Respiratory Exam: Clear to Ausculation Bilateral, NORMAL BREATHING PATTERN. absent: Rhonchi, Wheezes - Cardiovascular Exam Cardiovascular Exam: REGULAR RHYTHM, +S1, +S2. absent: Murmur - Extremities Exam Extremities Exam: Normal Inspection. absent: Calf Tenderness - Neurological Exam Neurological Exam: Alert, Awake Assessment and Plan - Assessment and Plan (Free Text) Assessment: POST OP EVACUATION OF CHRONIC SUBDURAL HEMATOMA HTN chronic stable DM chronic fair LIPIDS suggest statin therapy Normal TELE No volume overload No cardiac complaints * No post op cardiac complications noted Cont Rx as per neurosurgery * continued CAD risk factors modification * ASA and STATIN when appropriate * No additional cardiac testing planned this admission. WILL SIGN OFF: call if questions.
--- NOTE | 2017-06-07 12:10 | CP.PCM.PN ---
Subjective - Date & Time of Evaluation Date of Evaluation: 06/07/17 Time of Evaluation: 12:09 - Subjective Subjective: POD1 a a ox3 [facility] [address] st no drift repeat ct later today doing well Objective - Vital Signs/Intake and Output Vital Signs (last 24 hours): Temp Pulse Resp BP Pulse Ox 98.8 F 57 L 12 129/65 100 06/06/17 16:30 06/06/17 16:30 06/06/17 16:30 06/06/17 16:30 06/06/17 16:30 Intake and Output: 06/07/17 06/07/17 06:59 18:59 Intake Total 1150 838 Output Total 180 1020 Balance 970 -182 - Medications Medications: Current Medications Finasteride (Proscar) 5 mg PO DAILY [facility] Last Admin: 06/07/17 10:41 Dose: 5 mg Hydrochlorothiazide (Microzide) 12.5 mg PO DAILY [facility] Last Admin: 06/07/17 11:26 Dose: 12.5 mg Levetiracetam 500 mg/ Sodium (Chloride) 155 mls @ 500 mls/hr IVPB Q12H [facility] Last Admin: 06/07/17 06:01 Dose: 500 mls/hr Lactated Ringer's (Lactated Ringer's) 1,000 mls @ 100 mls/hr IV .Q10H [facility] Last Admin: 06/07/17 03:45 Dose: 100 mls/hr Losartan Potassium (Cozaar) 50 mg PO DAILY [facility] Last Admin: 06/07/17 10:41 Dose: 50 mg Morphine Sulfate (Morphine) 2 mg IVP Q3 PRN PRN Reason: Pain, moderate (4-7) Last Admin: 06/07/17 11:15 Dose: 2 mg Pantoprazole Sodium (Protonix Ec Tab) 40 mg PO DAILY [facility] Last Admin: 06/07/17 10:41 Dose: 40 mg - Labs Labs: 06/07/17 07:07 06/07/17 07:07 PT 14.3 SECONDS (9.7-12.2) H 06/03/17 18:43 INR 1.3 06/03/17 18:43 APTT 31 SECONDS (21-34) 06/03/17 18:43
--- NOTE | 2017-06-07 13:12 | CP.CCUPN ---
<Saurabh Yarbrough - Last Filed: 06/07/17 15:40> CCU Subjective - Physician Review Subjective (Free Text): PGY1 ICU progress note for Dr. Cortes Patient seen and examined at bedside this morning. Patient reports mild headache but states he is feeling better. His pain has been well controlled. He is tolerating his diet. No other complaints at this time. CCU Objective - Vital Signs / Intake & Output Intake and Output (Last 8hrs): Intake & Output 06/06/17 06/07/17 06/07/17 22:59 06:59 14:59 Intake Total 1025 850 838 Output Total 442 65 8640 Balance 770 760 -182 Weight 187 lb 3.2 oz Intake: IV 400 Intake, IV Amount 625 850 600 Right Antecubital 625 850 600 Oral 0 0 238 Output: Drainage 10 20 Left Parietal 10 20 Urine 854 52 7047 Urine, Voided 919 73 1935 Stool 0 Other: # Bowel Movements 0 0 0 - Physical Exam Head: Positive for: Other (surgical dressing in place. some strike through with dried blood) Pupils: Positive for: PERRL Extroacular Muscles: Positive for: EOMI Conjunctiva: Positive for: Normal Nose (External): Positive for: Atraumatic Respiratory/Chest: Positive for: Clear to Auscultation. Negative for: Respiratory Distress, Accessory Muscle Use Cardiovascular: Positive for: Regular Rate and Rhythm Abdomen: Positive for: Normal Bowel Sounds. Negative for: Tenderness, Distention, Peritoneal Signs, Guarding Lower Extremity: Positive for: Other (SCDs in place) Neurological: Positive for: GCS=15, CN II-XII Intact, Speech Normal, Motor Func Grossly Intact Skin: Positive for: Warm, Dry Psychiatric: Positive for: Alert, Oriented x 3 - Medications Active Medications: Active Medications Generic Name Dose Route Start Last Admin Trade Name Freq PRN Reason Stop Dose Admin Finasteride 5 mg 06/04/17 10:00 06/07/17 10:41 Proscar PO 5 mg DAILY AYDEE Administration Hydrochlorothiazide 12.5 mg 06/04/17 10:00 06/07/17 11:26 Microzide PO 12.5 mg DAILY AYDEE Administration Levetiracetam 500 mg/ Sodium 155 mls @ 500 mls/hr 06/06/17 18:00 06/07/17 06: 01 Chloride IVPB 500 mls/hr Q12H AYDEE Administration Lactated Ringer's 1,000 mls @ 100 mls/hr 06/06/17 17:15 06/07/17 03:45 Lactated Ringer's IV 100 mls/hr .Q10H AYDEE Administration Losartan Potassium 50 mg 06/04/17 10:00 06/07/17 10:41 Cozaar PO 50 mg DAILY AYDEE Administration Morphine Sulfate 2 mg 06/06/17 22:38 06/07/17 11:15 Morphine IVP 2 mg Q3 PRN Administration Pain, moderate (4-7) Pantoprazole Sodium 40 mg 06/04/17 10:00 06/07/17 10:41 Protonix Ec Tab PO 40 mg DAILY AYDEE Administration - Patient Studies Lab Studies: Lab Studies 06/07/17 06/07/17 06/07/17 Range/Units 11:38 07:07 07:07 WBC 17.0 H D (4.8-10.8) K/uL RBC 4.36 L (4.40-5.90) Mil/uL Hgb 11.9 L (12.0-18.0) g/dL Hct 36.8 (35.0-51.0) % MCV 84.4 (80.0-94.0) fL MCH 27.3 (27.0-31.0) pg MCHC 32.4 L (33.0-37.0) g/dL RDW 14.4 (11.5-14.5) % Plt Count 143 (130-400) K/uL MPV 11.5 (7.2-11.7) fL Neut % (Auto) 82.0 H (50.0-75.0) % Lymph % (Auto) 8.6 L (20.0-40.0) % Ashe % (Auto) 9.2 (0.0-10.0) % Eos % (Auto) 0.0 (0.0-4.0) % Baso % (Auto) 0.2 (0.0-2.0) % Neut # 13.9 H (1.8-7.0) K/uL Lymph # 1.5 (1.0-4.3) K/uL Ashe # 1.6 H (0.0-0.8) K/uL Eos # 0.0 (0.0-0.7) K/uL Baso # 0.0 (0.0-0.2) K/uL Neutrophils % (Manual) 78 H (50-75) % Lymphocytes % (Manual) 14 L (20-40) % Monocytes % (Manual) 8 (0-10) % Platelet Estimate Normal (NORMAL) RBC Morphology Normal Sodium 140 (132-148) mmol/L Potassium 4.5 (3.6-5.2) mmol/L Chloride 100 (98-107) mmol/L Carbon Dioxide 31 H (22-30) mmol/L Anion Gap 14 (10-20) BUN 22 H (9-20) mg/dL Creatinine 0.7 L (0.8-1.5) mg/dL Est GFR ( Amer) > 60 Est GFR (Non-Af Amer) > 60 POC Glucose (mg/dL) 111 H (65-110) mg/dL Random Glucose 103 (75-110) mg/dL Calcium 7.9 L (8.6-10.4) mg/dl Phosphorus 3.1 (2.5-4.5) mg/dL Magnesium 1.9 (1.6-2.3) mg/dL Total Bilirubin 0.8 (0.2-1.3) mg/dL AST 24 (17-59) U/L ALT 40 (21-72) U/L Alkaline Phosphatase 61 (38-126) U/L Total Protein 5.8 L (6.3-8.3) g/dL Albumin 3.3 L (3.5-5.0) g/dL Globulin 2.5 (2.2-3.9) gm/dL Albumin/Globulin Ratio 1.3 (1.0-2.1) 06/06/17 06/06/17 06/06/17 Range/Units 23:24 17:42 16:27 WBC (4.8-10.8) K/uL RBC (4.40-5.90) Mil/uL Hgb (12.0-18.0) g/dL Hct (35.0-51.0) % MCV (80.0-94.0) fL MCH (27.0-31.0) pg MCHC (33.0-37.0) g/dL RDW (11.5-14.5) % Plt Count (130-400) K/uL MPV (7.2-11.7) fL Neut % (Auto) (50.0-75.0) % Lymph % (Auto) (20.0-40.0) % Ashe % (Auto) (0.0-10.0) % Eos % (Auto) (0.0-4.0) % Baso % (Auto) (0.0-2.0) % Neut # (1.8-7.0) K/uL Lymph # (1.0-4.3) K/uL Ashe # (0.0-0.8) K/uL Eos # (0.0-0.7) K/uL Baso # (0.0-0.2) K/uL Neutrophils % (Manual) (50-75) % Lymphocytes % (Manual) (20-40) % Monocytes % (Manual) (0-10) % Platelet Estimate (NORMAL) RBC Morphology Sodium (132-148) mmol/L Potassium (3.6-5.2) mmol/L Chloride (98-107) mmol/L Carbon Dioxide (22-30) mmol/L Anion Gap (10-20) BUN (9-20) mg/dL Creatinine (0.8-1.5) mg/dL Est GFR ( Amer) Est GFR (Non-Af Amer) POC Glucose (mg/dL) 155 H 192 H 181 H (65-110) mg/dL Random Glucose (75-110) mg/dL Calcium (8.6-10.4) mg/dl Phosphorus (2.5-4.5) mg/dL Magnesium (1.6-2.3) mg/dL Total Bilirubin (0.2-1.3) mg/dL AST (17-59) U/L ALT (21-72) U/L Alkaline Phosphatase (38-126) U/L Total Protein (6.3-8.3) g/dL Albumin (3.5-5.0) g/dL Globulin (2.2-3.9) gm/dL Albumin/Globulin Ratio (1.0-2.1) Laboratory Results - last 24 hr 06/06/17 06/06/17 06/06/17 16:27 17:42 23:24 WBC RBC Hgb Hct MCV MCH MCHC RDW Plt Count MPV Neut % (Auto) Lymph % (Auto) Ashe % (Auto) Eos % (Auto) Baso % (Auto) Neut # Lymph # Ashe # Eos # Baso # Neutrophils % (Manual) Lymphocytes % (Manual) Monocytes % (Manual) Platelet Estimate RBC Morphology Sodium Potassium Chloride Carbon Dioxide Anion Gap BUN Creatinine Est GFR ( Amer) Est GFR (Non-Af Amer) POC Glucose (mg/dL) 181 H 192 H 155 H Random Glucose Calcium Phosphorus Magnesium Total Bilirubin AST ALT Alkaline Phosphatase Total Protein Albumin Globulin Albumin/Globulin Ratio 06/07/17 06/07/17 06/07/17 07:07 07:07 11:38 WBC 17.0 H D RBC 4.36 L Hgb 11.9 L Hct 36.8 MCV 84.4 MCH 27.3 MCHC 32.4 L RDW 14.4 Plt Count 143 MPV 11.5 Neut % (Auto) 82.0 H Lymph % (Auto) 8.6 L Ashe % (Auto) 9.2 Eos % (Auto) 0.0 Baso % (Auto) 0.2 Neut # 13.9 H Lymph # 1.5 Ashe # 1.6 H Eos # 0.0 Baso # 0.0 Neutrophils % (Manual) 78 H Lymphocytes % (Manual) 14 L Monocytes % (Manual) 8 Platelet Estimate Normal RBC Morphology Normal Sodium 140 Potassium 4.5 Chloride 100 Carbon Dioxide 31 H Anion Gap 14 BUN 22 H Creatinine 0.7 L Est GFR ( Amer) > 60 Est GFR (Non-Af Amer) > 60 POC Glucose (mg/dL) 111 H Random Glucose 103 Calcium 7.9 L Phosphorus 3.1 Magnesium 1.9 Total Bilirubin 0.8 AST 24 ALT 40 Alkaline Phosphatase 61 Total Protein 5.8 L Albumin 3.3 L Globulin 2.5 Albumin/Globulin Ratio 1.3 Fingerstick Blood Sugar Results: 111 Review of Systems - Review of Systems All systems: reviewed and no additional remarkable complaints except (as HPI) Critical Care Progress Note - Nutrition Nutrition: Nutrition Category Date Time Status Liquid Diet [DIET] Diets 06/07/17 Lunch Active Assessment/Plan - Assessment and Plan (Free Text) Assessment: Patient is a 67 year old male with PMH of HTN, DM and HLD presenting with chronic subdural hematoma with a 0.5 cm left to right midline shift s/p subdural hematoma evacuation. Plan: Neurology: Dr. Mccall consulted, help appreciated Dr. Greene consulted, help appreciated s/p subdural hematoma evacuation POD #1 Brain MRI 06/04 - Heterogeneous signal left convexity subdural hematoma with maximum thickness of 10 millimeter associated with mass effect on the left brain and 5.5 millimeter [id number] midline shift. The signal characteristic of the left convexity subdural hematoma suggestive of subacute on chronic hematoma. No evidence of acute infarction or mass lesion. Keppra 500mg IVPB q12h Decadron 4mg PO q8h neuro checks f/u neuro recs - f/u repeat head CT later today CV: Dr. Hall consulted, help appreciated hx of HTN HCTZ 12.5 mg PO daily Cozaar 50 mg PO daily Prophylactic Care: SCDs Anticoag - contra due to neuro surg Protonix 40mg PO daily Started on clear liquid diet - advance diet as tolerated Case discussed with Dr. Sophia Yarbrough PGY1 <Danie Cortes - Last Filed: 06/07/17 18:54> CCU Objective - Vital Signs / Intake & Output Intake and Output (Last 8hrs): Intake & Output 06/07/17 06/07/17 06/07/17 06:59 14:59 22:59 Intake Total 850 1238 700 Output Total 90 1020 1380 Balance 760 218 -680 Weight 187 lb 3.2 oz Intake: Intake, IV Amount 850 800 450 Right Antecubital 850 800 450 Oral 0 438 250 Output: Drainage 20 300 Left Parietal 20 300 Urine 90 1000 1080 Urine, Voided 90 1000 1080 Other: # Voids Urine, Voided 3 # Bowel Movements 0 0 0 - Medications Active Medications: Active Medications Generic Name Dose Route Start Last Admin Trade Name Freq PRN Reason Stop Dose Admin Finasteride 5 mg 06/04/17 10:00 06/07/17 10:41 Proscar PO 5 mg DAILY AYDEE Administration Hydrochlorothiazide 12.5 mg 06/04/17 10:00 06/07/17 11:26 Microzide PO 12.5 mg DAILY AYDEE Administration Levetiracetam 500 mg/ Sodium 155 mls @ 500 mls/hr 06/06/17 18:00 06/07/17 17: 20 Chloride IVPB 500 mls/hr Q12H AYDEE Administration Lactated Ringer's 1,000 mls @ 100 mls/hr 06/06/17 17:15 06/07/17 13:13 Lactated Ringer's IV 100 mls/hr .Q10H AYDEE Administration Losartan Potassium 50 mg 06/04/17 10:00 06/07/17 10:41 Cozaar PO 50 mg DAILY AYDEE Administration Morphine Sulfate 2 mg 06/06/17 22:38 06/07/17 18:25 Morphine IVP 2 mg Q3 PRN Administration Pain, moderate (4-7) Pantoprazole Sodium 40 mg 06/04/17 10:00 06/07/17 10:41 Protonix Ec Tab PO 40 mg DAILY AYDEE Administration - Patient Studies Lab Studies: Lab Studies 06/07/17 06/07/17 06/07/17 Range/Units 16:55 11:38 07:07 WBC (4.8-10.8) K/uL RBC (4.40-5.90) Mil/uL Hgb (12.0-18.0) g/dL Hct (35.0-51.0) % MCV (80.0-94.0) fL MCH (27.0-31.0) pg MCHC (33.0-37.0) g/dL RDW (11.5-14.5) % Plt Count (130-400) K/uL MPV (7.2-11.7) fL Neut % (Auto) (50.0-75.0) % Lymph % (Auto) (20.0-40.0) % Ashe % (Auto) (0.0-10.0) % Eos % (Auto) (0.0-4.0) % Baso % (Auto) (0.0-2.0) % Neut # (1.8-7.0) K/uL Lymph # (1.0-4.3) K/uL Ashe # (0.0-0.8) K/uL Eos # (0.0-0.7) K/uL Baso # (0.0-0.2) K/uL Neutrophils % (Manual) (50-75) % Lymphocytes % (Manual) (20-40) % Monocytes % (Manual) (0-10) % Platelet Estimate (NORMAL) RBC Morphology Sodium 140 (132-148) mmol/L Potassium 4.5 (3.6-5.2) mmol/L Chloride 100 (98-107) mmol/L Carbon Dioxide 31 H (22-30) mmol/L Anion Gap 14 (10-20) BUN 22 H (9-20) mg/dL Creatinine 0.7 L (0.8-1.5) mg/dL Est GFR ( Amer) > 60 Est GFR (Non-Af Amer) > 60 POC Glucose (mg/dL) 152 H 111 H (65-110) mg/dL Random Glucose 103 (75-110) mg/dL Calcium 7.9 L (8.6-10.4) mg/dl Phosphorus 3.1 (2.5-4.5) mg/dL Magnesium 1.9 (1.6-2.3) mg/dL Total Bilirubin 0.8 (0.2-1.3) mg/dL AST 24 (17-59) U/L ALT 40 (21-72) U/L Alkaline Phosphatase 61 (38-126) U/L Total Protein 5.8 L (6.3-8.3) g/dL Albumin 3.3 L (3.5-5.0) g/dL Globulin 2.5 (2.2-3.9) gm/dL Albumin/Globulin Ratio 1.3 (1.0-2.1) 06/07/17 06/06/17 Range/Units 07:07 23:24 WBC 17.0 H D (4.8-10.8) K/uL RBC 4.36 L (4.40-5.90) Mil/uL Hgb 11.9 L (12.0-18.0) g/dL Hct 36.8 (35.0-51.0) % MCV 84.4 (80.0-94.0) fL MCH 27.3 (27.0-31.0) pg MCHC 32.4 L (33.0-37.0) g/dL RDW 14.4 (11.5-14.5) % Plt Count 143 (130-400) K/uL MPV 11.5 (7.2-11.7) fL Neut % (Auto) 82.0 H (50.0-75.0) % Lymph % (Auto) 8.6 L (20.0-40.0) % Ashe % (Auto) 9.2 (0.0-10.0) % Eos % (Auto) 0.0 (0.0-4.0) % Baso % (Auto) 0.2 (0.0-2.0) % Neut # 13.9 H (1.8-7.0) K/uL Lymph # 1.5 (1.0-4.3) K/uL Ashe # 1.6 H (0.0-0.8) K/uL Eos # 0.0 (0.0-0.7) K/uL Baso # 0.0 (0.0-0.2) K/uL Neutrophils % (Manual) 78 H (50-75) % Lymphocytes % (Manual) 14 L (20-40) % Monocytes % (Manual) 8 (0-10) % Platelet Estimate Normal (NORMAL) RBC Morphology Normal Sodium (132-148) mmol/L Potassium (3.6-5.2) mmol/L Chloride (98-107) mmol/L Carbon Dioxide (22-30) mmol/L Anion Gap (10-20) BUN (9-20) mg/dL Creatinine (0.8-1.5) mg/dL Est GFR ( Amer) Est GFR (Non-Af Amer) POC Glucose (mg/dL) 155 H (65-110) mg/dL Random Glucose (75-110) mg/dL Calcium (8.6-10.4) mg/dl Phosphorus (2.5-4.5) mg/dL Magnesium (1.6-2.3) mg/dL Total Bilirubin (0.2-1.3) mg/dL AST (17-59) U/L ALT (21-72) U/L Alkaline Phosphatase (38-126) U/L Total Protein (6.3-8.3) g/dL Albumin (3.5-5.0) g/dL Globulin (2.2-3.9) gm/dL Albumin/Globulin Ratio (1.0-2.1) Laboratory Results - last 24 hr 06/06/17 06/07/17 06/07/17 23:24 07:07 07:07 WBC 17.0 H D RBC 4.36 L Hgb 11.9 L Hct 36.8 MCV 84.4 MCH 27.3 MCHC 32.4 L RDW 14.4 Plt Count 143 MPV 11.5 Neut % (Auto) 82.0 H Lymph % (Auto) 8.6 L Ashe % (Auto) 9.2 Eos % (Auto) 0.0 Baso % (Auto) 0.2 Neut # 13.9 H Lymph # 1.5 Ashe # 1.6 H Eos # 0.0 Baso # 0.0 Neutrophils % (Manual) 78 H Lymphocytes % (Manual) 14 L Monocytes % (Manual) 8 Platelet Estimate Normal RBC Morphology Normal Sodium 140 Potassium 4.5 Chloride 100 Carbon Dioxide 31 H Anion Gap 14 BUN 22 H Creatinine 0.7 L Est GFR ( Amer) > 60 Est GFR (Non-Af Amer) > 60 POC Glucose (mg/dL) 155 H Random Glucose 103 Calcium 7.9 L Phosphorus 3.1 Magnesium 1.9 Total Bilirubin 0.8 AST 24 ALT 40 Alkaline Phosphatase 61 Total Protein 5.8 L Albumin 3.3 L Globulin 2.5 Albumin/Globulin Ratio 1.3 06/07/17 06/07/17 11:38 16:55 WBC RBC Hgb Hct MCV MCH MCHC RDW Plt Count MPV Neut % (Auto) Lymph % (Auto) Ashe % (Auto) Eos % (Auto) Baso % (Auto) Neut # Lymph # Ashe # Eos # Baso # Neutrophils % (Manual) Lymphocytes % (Manual) Monocytes % (Manual) Platelet Estimate RBC Morphology Sodium Potassium Chloride Carbon Dioxide Anion Gap BUN Creatinine Est GFR ( Amer) Est GFR (Non-Af Amer) POC Glucose (mg/dL) 111 H 152 H Random Glucose Calcium Phosphorus Magnesium Total Bilirubin AST ALT Alkaline Phosphatase Total Protein Albumin Globulin Albumin/Globulin Ratio Critical Care Progress Note - Nutrition Nutrition: Nutrition Category Date Time Status Liquid Diet [DIET] Diets 06/07/17 Lunch Active Attending/Attestation - Attestation I have personally seen and examined this patient.: Yes I have fully participated in the care of the patient.: Yes I have reviewed all pertinent clinical information: Yes Notes (Text): 06/07/17 18:54 Today: May The Patient was seen and examined at the bedside, Medical records reviewed, and management issues were discussed and formulated with the house staff. I have reviewed all the relevant clinical, laboratory, hemodynamic, radiographic data and medications Events reviewed Pain issues, skin care, head of the bed elevation, glycemic control were addressed. Agree with above resident's assessment and treatment plans of care as transcribed in Dr. Yarbrough note.
--- NOTE | 2017-06-07 17:08 | CT ---
PROCEDURE: CT HEAD WITHOUT CONTRAST. HISTORY: f/iu COMPARISON: None available. TECHNIQUE: Axial computed tomography images were obtained through the head/brain without intravenous contrast. Radiation dose: Total exam DLP = 1470.01 mGy-cm. This CT exam was performed using one or more of the following dose reduction techniques: Automated exposure control, adjustment of the mA and/or kV according to patient size, and/or use of iterative reconstruction technique. FINDINGS: BRAIN: Left frontal subdural drain in situ status post left frontotemporal craniotomy with scalp jennifer in place. There is a marked reduction in throughout near resolution of left subdural hematoma though a left frontal lobe contusion is a pair with local edema appearing [id number]. No significant mass effect appreciated. Prior midline shift appears to have resolved. Prominent hyperdensity related to the posterior falx is again apparently reflecting trace hemorrhage as compared to distant prior head CT 05/12/2014 which did not demonstrate this finding. Continued CT follow-up is advised. VENTRICLES: Unremarkable. No hydrocephalus. CALVARIUM: Unremarkable. PARANASAL SINUSES: Unremarkable as visualized. No significant inflammatory changes. MASTOID AIR CELLS: Unremarkable as visualized. No inflammatory changes. OTHER FINDINGS: None. IMPRESSION: Status post left frontotemporal craniotomy with subdural drainage catheter in position and essential resolution of left subdural hematoma and midline shift as per above. Left frontal pole contusion and trace hemorrhage is appreciated status post drainage neuro surgical procedure. Hyperdensity related to the posterior falx is again appreciated reflecting additional limited hemorrhage appearing stable. CT follow-up is advised.
--- NOTE | 2017-06-07 19:02 | CP.PCM.PN ---
Subjective - Date & Time of Evaluation Date of Evaluation: 06/07/17 Time of Evaluation: 13:20 - Subjective Subjective: clinically same Objective - Vital Signs/Intake and Output Vital Signs (last 24 hours): Temp Pulse Resp BP Pulse Ox 98.8 F 57 L 12 129/65 100 06/06/17 16:30 06/06/17 16:30 06/06/17 16:30 06/06/17 16:30 06/06/17 16:30 Intake and Output: 06/07/17 06/08/17 18:59 06:59 Intake Total 1938 Output Total 2400 Balance -462 - Medications Medications: Current Medications Finasteride (Proscar) 5 mg PO DAILY [facility] Last Admin: 06/07/17 10:41 Dose: 5 mg Hydrochlorothiazide (Microzide) 12.5 mg PO DAILY [facility] Last Admin: 06/07/17 11:26 Dose: 12.5 mg Levetiracetam 500 mg/ Sodium (Chloride) 155 mls @ 500 mls/hr IVPB Q12H [facility] Last Admin: 06/07/17 17:20 Dose: 500 mls/hr Lactated Ringer's (Lactated Ringer's) 1,000 mls @ 100 mls/hr IV .Q10H [facility] Last Admin: 06/07/17 13:13 Dose: 100 mls/hr Losartan Potassium (Cozaar) 50 mg PO DAILY [facility] Last Admin: 06/07/17 10:41 Dose: 50 mg Morphine Sulfate (Morphine) 2 mg IVP Q3 PRN PRN Reason: Pain, moderate (4-7) Last Admin: 06/07/17 18:25 Dose: 2 mg Pantoprazole Sodium (Protonix Ec Tab) 40 mg PO DAILY [facility] Last Admin: 06/07/17 10:41 Dose: 40 mg - Labs Labs: 06/07/17 07:07 06/07/17 07:07 PT 14.3 SECONDS (9.7-12.2) H 06/03/17 18:43 INR 1.3 06/03/17 18:43 APTT 31 SECONDS (21-34) 06/03/17 18:43 - Constitutional Appears: Well - Head Exam Head Exam: ATRAUMATIC, NORMAL INSPECTION, NORMOCEPHALIC - Eye Exam Eye Exam: EOMI, Normal appearance, PERRL Pupil Exam: NORMAL ACCOMODATION, PERRL - ENT Exam ENT Exam: Mucous Membranes Moist, Normal Exam - Neck Exam Neck Exam: Full ROM, Normal Inspection. absent: Lymphadenopathy - Respiratory Exam Respiratory Exam: Decreased Breath Sounds - Cardiovascular Exam Cardiovascular Exam: REGULAR RHYTHM, +S1, +S2 - GI/Abdominal Exam GI & Abdominal Exam: Soft, Diminished Bowel Sounds - Rectal Exam Rectal Exam: Deferred Assessment and Plan (1) Subdural hematoma Status: Acute (2) Dizziness Status: Acute (3) General medical exam Status: Acute (4) History of hypertension Status: Acute (5) Sinusitis Status: Acute (6) Uncontrolled hypertension Status: Acute (7) Upper extremity pain Status: Acute (8) Viral exanthem Status: Acute (9) Viral syndrome Status: Acute - Assessment and Plan (Free Text) Plan: Patient examined. Mild headache present. Pain under control. Continue antihypertensive medications, pain management, supportive care.
[2017-06-07] MEDS ORDERED: Labetalol 25mg/5ml Syringe IVP PRN (22:32)
--- NOTE | 2017-06-08 01:57 | PN ---
DATE: NEUROLOGICAL PROBLEM: Subdural hematoma, status post craniotomy, postoperative day #2. PHYSICAL EXAMINATION GENERAL: The patient was examined this morning around 07:15 a.m. in the unit. The patient was arousable. VITAL SIGNS: Blood pressure 129/65, mean arterial pressure of 76, respiratory rate 20, temperature 97.6, pulse rate 61. NEUROLOGIC: Pupils are reactive to light. Extraocular movements normal. Speech is intact. Moves all 4 extremities as per the command. No long tract sign present. The patient seems to be neurologically intact following surgery. His medication of Keppra has been switched to IV at present. Earlier, Decadron was prescribed to decrease the intracerebral mass effect, however which was not carried over. Continue the present management. When the patient tolerates the p.o., IV Keppra can be switched back to p.o. Seven Greene MD
[2017-06-08] MEDS: LEVETIRACETAM IVPB SCH ×2 (06:08→17:08)
[2017-06-08] MEDS: SODIUM CHLORIDE 0.9% IVPB SCH ×2 (06:08→17:08)
[2017-06-08 06:37] LABS: BASO # 0.1 K/uL (0.0-0.2); BASO % 0.8 % (0.0-2.0); EOS % 0.2 % (0.0-4.0); HEMATOCRIT 40.3 % (35.0-51.0); LYMPH # 1.6 K/uL (1.0-4.3); LYMPH % 13.1 % (20.0-40.0); MEAN CELL VOLUME 84.5 fL (80.0-94.0); MEAN PLATELET VOLUME 11.1 fL (7.2-11.7); MONO # 1.4 K/uL (0.0-0.8); MONO % 11.6 % (0.0-10.0); RED CELL DISTRIBUTION WIDTH 14.3 % (11.5-14.5); WHITE BLOOD COUNT 12.5 K/uL (4.8-10.8)
[2017-06-08 06:54] LABS: ALKALINE PHOSPHATASE 70 U/L (38-126); ALT/SGPT 59 U/L (21-72); AST/SGOT 29 U/L (17-59); BILIRUBIN,TOTAL 0.7 mg/dL (0.2-1.3); BLOOD UREA NITROGEN 15 mg/dL (9-20); CALCIUM 8.3 mg/dl (8.6-10.4); CARBON DIOXIDE 35 mmol/L (22-30); CHLORIDE 97 mmol/L (98-107); GFR AFRICAN-AMERICAN > 60; GLUCOSE,RANDOM 118 mg/dL (75-110); MAGNESIUM 1.8 mg/dL (1.6-2.3); PHOSPHOROUS 3.5 mg/dL (2.5-4.5); POTASSIUM 4.1 mmol/L (3.6-5.2); SODIUM 139 mmol/L (132-148); TOTAL PROTEIN 7.3 g/dL (6.3-8.3)
--- NOTE | 2017-06-08 09:28 | CP.CCUPN ---
CCU Subjective - Physician Review Subjective (Free Text): PGY1 ICU progress note for Dr. Pérez Patient seen and examined at bedside this morning. Patient states he still has mild headaches but states he is feeling well. His pain has been well controlled. He is tolerating his diet. No other complaints at this time. CCU Objective - Vital Signs / Intake & Output Vital Signs (Last 4 hours): Vital Signs Temp Pulse Resp BP Pulse Ox 06/08/17 08:20 78 11 L 97 06/08/17 08:19 79 12 146/89 97 06/08/17 08:10 64 8 L 96 06/08/17 08:00 97.9 F 75 11 L 97 06/08/17 07:50 79 10 L 06/08/17 07:40 81 12 06/08/17 07:30 71 9 L 06/08/17 07:20 66 10 L 06/08/17 07:18 68 12 134/84 06/08/17 07:10 72 11 L 06/08/17 07:00 75 10 L 133/73 06/08/17 06:50 75 10 L 06/08/17 06:40 76 12 06/08/17 06:30 76 16 06/08/17 06:20 77 12 06/08/17 06:18 76 12 133/73 06/08/17 06:10 74 12 06/08/17 06:00 66 9 L 06/08/17 05:50 67 10 L 06/08/17 05:40 66 10 L 06/08/17 05:30 68 8 L Intake and Output (Last 8hrs): Intake & Output 06/07/17 06/08/17 06/08/17 22:59 06:59 14:59 Intake Total 1100 800 200 Output Total 1780 1000 400 Balance -680 -200 -200 Weight 188 lb 1.6 oz Intake: Intake, IV Amount 850 800 200 Right Antecubital 850 800 200 Oral 250 0 0 Output: Drainage 300 100 Left Parietal 300 100 Urine 1480 900 400 Urine, Voided 1480 900 400 Other: # Voids Urine, Voided 0 400 0 # Bowel Movements 0 0 0 - Physical Exam Head: Positive for: Other (surgical dressing in place. some strike through with dried blood) Pupils: Positive for: PERRL Extroacular Muscles: Positive for: EOMI Conjunctiva: Positive for: Normal Nose (External): Positive for: Atraumatic Respiratory/Chest: Positive for: Clear to Auscultation. Negative for: Respiratory Distress, Accessory Muscle Use Cardiovascular: Positive for: Regular Rate and Rhythm Abdomen: Positive for: Normal Bowel Sounds. Negative for: Tenderness, Distention, Peritoneal Signs, Guarding Lower Extremity: Positive for: Other (SCDs in place) Neurological: Positive for: GCS=15, CN II-XII Intact, Speech Normal, Motor Func Grossly Intact Skin: Positive for: Warm, Dry Psychiatric: Positive for: Alert, Oriented x 3 - Medications Active Medications: Active Medications Generic Name Dose Route Start Last Admin Trade Name Freq PRN Reason Stop Dose Admin Finasteride 5 mg 06/04/17 10:00 06/07/17 10:41 Proscar PO 5 mg DAILY AYDEE Administration Hydralazine HCl 10 mg 06/07/17 22:33 06/07/17 22:42 Apresoline IVP 10 mg Q6H PRN Administration Systolic Blood Pressure Hydrochlorothiazide 12.5 mg 06/04/17 10:00 06/07/17 11:26 Microzide PO 12.5 mg DAILY AYDEE Administration Levetiracetam 500 mg/ Sodium 155 mls @ 500 mls/hr 06/06/17 18:00 06/08/17 06: 08 Chloride IVPB 500 mls/hr Q12H AYDEE Administration Lactated Ringer's 1,000 mls @ 100 mls/hr 06/06/17 17:15 06/07/17 13:13 Lactated Ringer's IV 100 mls/hr .Q10H AYDEE Administration Labetalol HCl 20 mg 06/07/17 22:32 06/08/17 00:00 Trandate IVP 20 mg Q4 PRN Administration Systolic Blood Pressure Losartan Potassium 50 mg 06/04/17 10:00 06/07/17 10:41 Cozaar PO 50 mg DAILY AYDEE Administration Morphine Sulfate 2 mg 06/06/17 22:38 06/08/17 03:57 Morphine IVP 2 mg Q3 PRN Administration Pain, moderate (4-7) Pantoprazole Sodium 40 mg 06/04/17 10:00 06/07/17 10:41 Protonix Ec Tab PO 40 mg DAILY AYDEE Administration - Patient Studies Lab Studies: Lab Studies 06/08/17 06/08/17 06/08/17 Range/Units 08:01 06:29 06:29 WBC 12.5 H (4.8-10.8) K/uL RBC 4.77 (4.40-5.90) Mil/uL Hgb 12.9 (12.0-18.0) g/dL Hct 40.3 (35.0-51.0) % MCV 84.5 (80.0-94.0) fL MCH 27.0 (27.0-31.0) pg MCHC 32.0 L (33.0-37.0) g/dL RDW 14.3 (11.5-14.5) % Plt Count 146 (130-400) K/uL MPV 11.1 (7.2-11.7) fL Neut % (Auto) 74.3 (50.0-75.0) % Lymph % (Auto) 13.1 L (20.0-40.0) % Eaton % (Auto) 11.6 H (0.0-10.0) % Eos % (Auto) 0.2 (0.0-4.0) % Baso % (Auto) 0.8 (0.0-2.0) % Neut # 9.3 H (1.8-7.0) K/uL Lymph # 1.6 (1.0-4.3) K/uL Eaton # 1.4 H (0.0-0.8) K/uL Eos # 0.0 (0.0-0.7) K/uL Baso # 0.1 (0.0-0.2) K/uL Sodium 139 (132-148) mmol/L Potassium 4.1 (3.6-5.2) mmol/L Chloride 97 L (98-107) mmol/L Carbon Dioxide 35 H (22-30) mmol/L Anion Gap 11 (10-20) BUN 15 (9-20) mg/dL Creatinine 0.9 (0.8-1.5) mg/dL Est GFR ( Amer) > 60 Est GFR (Non-Af Amer) > 60 POC Glucose (mg/dL) 131 H (65-110) mg/dL Random Glucose 118 H (75-110) mg/dL Calcium 8.3 L (8.6-10.4) mg/dl Phosphorus 3.5 (2.5-4.5) mg/dL Magnesium 1.8 (1.6-2.3) mg/dL Total Bilirubin 0.7 (0.2-1.3) mg/dL AST 29 (17-59) U/L ALT 59 (21-72) U/L Alkaline Phosphatase 70 (38-126) U/L Total Protein 7.3 (6.3-8.3) g/dL Albumin 3.6 (3.5-5.0) g/dL Globulin 3.7 (2.2-3.9) gm/dL Albumin/Globulin Ratio 1.0 (1.0-2.1) 06/07/17 06/07/17 06/07/17 Range/Units 21:05 16:55 11:38 WBC (4.8-10.8) K/uL RBC (4.40-5.90) Mil/uL Hgb (12.0-18.0) g/dL Hct (35.0-51.0) % MCV (80.0-94.0) fL MCH (27.0-31.0) pg MCHC (33.0-37.0) g/dL RDW (11.5-14.5) % Plt Count (130-400) K/uL MPV (7.2-11.7) fL Neut % (Auto) (50.0-75.0) % Lymph % (Auto) (20.0-40.0) % Eaton % (Auto) (0.0-10.0) % Eos % (Auto) (0.0-4.0) % Baso % (Auto) (0.0-2.0) % Neut # (1.8-7.0) K/uL Lymph # (1.0-4.3) K/uL Eaton # (0.0-0.8) K/uL Eos # (0.0-0.7) K/uL Baso # (0.0-0.2) K/uL Sodium (132-148) mmol/L Potassium (3.6-5.2) mmol/L Chloride (98-107) mmol/L Carbon Dioxide (22-30) mmol/L Anion Gap (10-20) BUN (9-20) mg/dL Creatinine (0.8-1.5) mg/dL Est GFR ( Amer) Est GFR (Non-Af Amer) POC Glucose (mg/dL) 114 H 152 H 111 H (65-110) mg/dL Random Glucose (75-110) mg/dL Calcium (8.6-10.4) mg/dl Phosphorus (2.5-4.5) mg/dL Magnesium (1.6-2.3) mg/dL Total Bilirubin (0.2-1.3) mg/dL AST (17-59) U/L ALT (21-72) U/L Alkaline Phosphatase (38-126) U/L Total Protein (6.3-8.3) g/dL Albumin (3.5-5.0) g/dL Globulin (2.2-3.9) gm/dL Albumin/Globulin Ratio (1.0-2.1) Laboratory Results - last 24 hr 06/07/17 06/07/17 06/07/17 11:38 16:55 21:05 WBC RBC Hgb Hct MCV MCH MCHC RDW Plt Count MPV Neut % (Auto) Lymph % (Auto) Eaton % (Auto) Eos % (Auto) Baso % (Auto) Neut # Lymph # Eaton # Eos # Baso # Sodium Potassium Chloride Carbon Dioxide Anion Gap BUN Creatinine Est GFR ( Amer) Est GFR (Non-Af Amer) POC Glucose (mg/dL) 111 H 152 H 114 H Random Glucose Calcium Phosphorus Magnesium Total Bilirubin AST ALT Alkaline Phosphatase Total Protein Albumin Globulin Albumin/Globulin Ratio 06/08/17 06/08/17 06/08/17 06:29 06:29 08:01 WBC 12.5 H RBC 4.77 Hgb 12.9 Hct 40.3 MCV 84.5 MCH 27.0 MCHC 32.0 L RDW 14.3 Plt Count 146 MPV 11.1 Neut % (Auto) 74.3 Lymph % (Auto) 13.1 L Eaton % (Auto) 11.6 H Eos % (Auto) 0.2 Baso % (Auto) 0.8 Neut # 9.3 H Lymph # 1.6 Eaton # 1.4 H Eos # 0.0 Baso # 0.1 Sodium 139 Potassium 4.1 Chloride 97 L Carbon Dioxide 35 H Anion Gap 11 BUN 15 Creatinine 0.9 Est GFR ( Amer) > 60 Est GFR (Non-Af Amer) > 60 POC Glucose (mg/dL) 131 H Random Glucose 118 H Calcium 8.3 L Phosphorus 3.5 Magnesium 1.8 Total Bilirubin 0.7 AST 29 ALT 59 Alkaline Phosphatase 70 Total Protein 7.3 Albumin 3.6 Globulin 3.7 Albumin/Globulin Ratio 1.0 Fingerstick Blood Sugar Results: 111 Review of Systems - Review of Systems All systems: reviewed and no additional remarkable complaints except (as per HPI ) Critical Care Progress Note - Nutrition Nutrition: Nutrition Category Date Time Status Liquid Diet [DIET] Diets 06/07/17 Lunch Active Assessment/Plan - Assessment and Plan (Free Text) Assessment: Patient is a 67 year old male with PMH of HTN, DM and HLD presenting with chronic subdural hematoma with a 0.5 cm left to right midline shift s/p subdural hematoma evacuation. Plan: Neurology: Dr. Mccall consulted, help appreciated Dr. Greene consulted, help appreciated s/p subdural hematoma evacuation POD #1 Brain MRI 06/04 - Heterogeneous signal left convexity subdural hematoma with maximum thickness of 10 millimeter associated with mass effect on the left brain and 5.5 millimeter [id number] midline shift. The signal characteristic of the left convexity subdural hematoma suggestive of subacute on chronic hematoma. No evidence of acute infarction or mass lesion. Keppra 500mg IVPB q12h Decadron 4mg PO q8h neuro checks f/u neuro recs - f/u repeat head CT later today CV: Dr. Hall consulted, help appreciated hx of HTN HCTZ 12.5 mg PO daily Cozaar 50 mg PO daily Prophylactic Care: SCDs Anticoag - contra due to neuro surg Protonix 40mg PO daily Started on clear liquid diet - advance diet as tolerated Case discussed with Dr. Elisa Wiley Linnea PGY1
[2017-06-08] MEDS: Pantoprazole 40 mg EC Tab PO SCH (09:45)
[2017-06-08] MEDS: Lactated Ringer's 1,000 ML IV SCH (09:47)
--- NOTE | 2017-06-08 11:09 | CP.PCM.PN ---
Subjective - Date & Time of Evaluation Date of Evaluation: 06/08/17 Time of Evaluation: 11:07 - Subjective Subjective: fully awake alert orineted no focal deficits ct reviewed good post op result area of contusion noted in CT is most likly hemostatic agent left in place in area where there was acute bleeding Pt clear to tranfer to floor today and d/c home tomorrow if remains stable Drain d/cd Objective - Vital Signs/Intake and Output Vital Signs (last 24 hours): Temp Pulse Resp BP Pulse Ox 97.9 F 78 11 L 146/89 97 06/08/17 08:00 06/08/17 08:20 06/08/17 08:20 06/08/17 08:19 06/08/17 08:20 Intake and Output: 06/08/17 06/08/17 06:59 18:59 Intake Total 1200 200 Output Total 1400 400 Balance -200 -200 - Medications Medications: Current Medications Finasteride (Proscar) 5 mg PO DAILY [facility] Last Admin: 06/08/17 09:45 Dose: 5 mg Hydralazine HCl (Apresoline) 10 mg IVP Q6H PRN PRN Reason: Systolic Blood Pressure Last Admin: 06/07/17 22:42 Dose: 10 mg Hydrochlorothiazide (Microzide) 12.5 mg PO DAILY [facility] [place] Last Admin: 06/08/17 09:45 Dose: 12.5 mg Levetiracetam 500 mg/ Sodium (Chloride) 155 mls @ 500 mls/hr IVPB Q12H [facility] [place] Last Admin: 06/08/17 06:08 Dose: 500 mls/hr Lactated Ringer's (Lactated Ringer's) 1,000 mls @ 100 mls/hr IV .Q10H [facility] [place] Last Admin: 06/08/17 09:47 Dose: 100 mls/hr Labetalol HCl (Trandate) 20 mg IVP Q4 PRN PRN Reason: Systolic Blood Pressure Last Admin: 06/08/17 00:00 Dose: 20 mg Losartan Potassium (Cozaar) 50 mg PO DAILY [facility] [place] Last Admin: 06/08/17 09:45 Dose: 50 mg Morphine Sulfate (Morphine) 2 mg IVP Q3 PRN PRN Reason: Pain, moderate (4-7) Last Admin: 06/08/17 03:57 Dose: 2 mg Pantoprazole Sodium (Protonix Ec Tab) 40 mg PO DAILY [facility] Last Admin: 06/08/17 09:45 Dose: 40 mg - Labs Labs: 06/08/17 06:29 06/08/17 06:29 PT 14.3 SECONDS (9.7-12.2) H 06/03/17 18:43 INR 1.3 06/03/17 18:43 APTT 31 SECONDS (21-34) 06/03/17 18:43
--- NOTE | 2017-06-08 19:29 | CARD ---
APPROVED REPORT EKG Measurement Heart [id number] <Conclusion> Normal sinus rhythm Normal ECG
--- NOTE | 2017-06-08 20:04 | CP.PCM.PN ---
Subjective - Date & Time of Evaluation Date of Evaluation: 06/08/17 Time of Evaluation: 12:40 - Subjective Subjective: clinically same Objective - Vital Signs/Intake and Output Vital Signs (last 24 hours): Temp Pulse Resp BP Pulse Ox 98.5 F 81 13 126/67 95 06/08/17 16:00 06/08/17 19:32 06/08/17 19:32 06/08/17 19:32 06/08/17 19:32 Intake and Output: 06/08/17 06/09/17 18:59 06:59 Intake Total 2650 Output Total 2600 Balance 50 - Medications Medications: Current Medications Finasteride (Proscar) 5 mg PO DAILY [facility] Last Admin: 06/08/17 09:45 Dose: 5 mg Hydralazine HCl (Apresoline) 10 mg IVP Q6H PRN PRN Reason: Systolic Blood Pressure Last Admin: 06/07/17 22:42 Dose: 10 mg Hydrochlorothiazide (Microzide) 12.5 mg PO DAILY [facility] Last Admin: 06/08/17 09:45 Dose: 12.5 mg Levetiracetam 500 mg/ Sodium (Chloride) 155 mls @ 500 mls/hr IVPB Q12H [facility] Last Admin: 06/08/17 17:08 Dose: 500 mls/hr Labetalol HCl (Trandate) 20 mg IVP Q4 PRN PRN Reason: Systolic Blood Pressure Last Admin: 06/08/17 00:00 Dose: 20 mg Losartan Potassium (Cozaar) 50 mg PO DAILY [facility] Last Admin: 06/08/17 09:45 Dose: 50 mg Morphine Sulfate (Morphine) 2 mg IVP Q3 PRN PRN Reason: Pain, moderate (4-7) Last Admin: 06/08/17 11:11 Dose: 2 mg Pantoprazole Sodium (Protonix Ec Tab) 40 mg PO DAILY [facility] Last Admin: 06/08/17 09:45 Dose: 40 mg - Labs Labs: 06/08/17 06:29 06/08/17 06:29 PT 14.3 SECONDS (9.7-12.2) H 06/03/17 18:43 INR 1.3 06/03/17 18:43 APTT 31 SECONDS (21-34) 06/03/17 18:43 - Constitutional Appears: Well - Head Exam Head Exam: ATRAUMATIC, NORMAL INSPECTION, NORMOCEPHALIC - Eye Exam Eye Exam: EOMI, Normal appearance, PERRL Pupil Exam: NORMAL ACCOMODATION, PERRL - ENT Exam ENT Exam: Mucous Membranes Moist, Normal Exam - Neck Exam Neck Exam: Full ROM, Normal Inspection. absent: Lymphadenopathy - Respiratory Exam Respiratory Exam: Decreased Breath Sounds - Cardiovascular Exam Cardiovascular Exam: REGULAR RHYTHM, +S1, +S2 - GI/Abdominal Exam GI & Abdominal Exam: Soft, Diminished Bowel Sounds - Rectal Exam Rectal Exam: Deferred Assessment and Plan (1) Subdural hematoma Status: Acute (2) Dizziness Status: Acute (3) General medical exam Status: Acute (4) History of hypertension Status: Acute (5) Sinusitis Status: Acute (6) Uncontrolled hypertension Status: Acute (7) Upper extremity pain Status: Acute (8) Viral exanthem Status: Acute (9) Viral syndrome Status: Acute - Assessment and Plan (Free Text) Plan: Patient examined. Patient better. CT are suggestive of status post left temporoparietal craniotomy with subdural drainage catheter in position and resolution of left subdural hematoma and midline shift. Continue antihypertensive medications, pain management. Continue supportive care.
[2017-06-09] MEDS: LEVETIRACETAM IVPB SCH ×2 (06:00→18:25)
[2017-06-09] MEDS: SODIUM CHLORIDE 0.9% IVPB SCH ×2 (06:00→18:25)
[2017-06-09] MEDS: Pantoprazole 40 mg EC Tab PO SCH (09:54)
[2017-06-09] MEDS ORDERED: Oxycodone/Acetaminophen 5/325 mg Tab PO PRN (12:52)
[2017-06-09 17:20] VITALS: RESP 20
--- NOTE | 2017-06-09 18:33 | CP.PCM.PN ---
Subjective - Date & Time of Evaluation Date of Evaluation: 06/09/17 Time of Evaluation: 10:20 - Subjective Subjective: clinically same Objective - Vital Signs/Intake and Output Vital Signs (last 24 hours): Temp Pulse Resp BP Pulse Ox 98.3 F 80 20 106/68 97 06/09/17 17:19 06/09/17 17:19 06/09/17 17:19 06/09/17 17:19 06/09/17 17:19 Intake and Output: 06/09/17 06/09/17 06:59 18:59 Intake Total 450 200 Output Total 900 850 Balance -450 -650 - Medications Medications: Current Medications Acetaminophen (Tylenol 325mg Tab) 650 mg PO Q6 PRN PRN Reason: Pain, Mild (1-3) Last Admin: 06/09/17 11:44 Dose: 650 mg Finasteride (Proscar) 5 mg PO DAILY [facility] Last Admin: 06/09/17 09:54 Dose: 5 mg Hydralazine HCl (Apresoline) 10 mg IVP Q6H PRN PRN Reason: Systolic Blood Pressure Last Admin: 06/07/17 22:42 Dose: 10 mg Hydrochlorothiazide (Microzide) 12.5 mg PO DAILY [facility] Last Admin: 06/09/17 09:54 Dose: 12.5 mg Levetiracetam 500 mg/ Sodium (Chloride) 155 mls @ 500 mls/hr IVPB Q12H [facility] Last Admin: 06/09/17 18:25 Dose: 500 mls/hr Labetalol HCl (Trandate) 20 mg IVP Q4 PRN PRN Reason: Systolic Blood Pressure Last Admin: 06/08/17 00:00 Dose: 20 mg Losartan Potassium (Cozaar) 50 mg PO DAILY [facility] Last Admin: 06/09/17 09:56 Dose: 50 mg Morphine Sulfate (Morphine) 2 mg IVP Q3 PRN PRN Reason: Pain, moderate (4-7) Last Admin: 06/09/17 00:17 Dose: 2 mg Oxycodone/Acetaminophen (Percocet 5/325 Mg Tab) 1 tab PO Q8H PRN PRN Reason: Pain, severe (8-10) Stop: 06/12/17 12:53 Pantoprazole Sodium (Protonix Ec Tab) 40 mg PO DAILY [facility] Last Admin: 06/09/17 09:54 Dose: 40 mg - Labs Labs: 06/08/17 06:29 06/08/17 06:29 PT 14.3 SECONDS (9.7-12.2) H 06/03/17 18:43 INR 1.3 06/03/17 18:43 APTT 31 SECONDS (21-34) 06/03/17 18:43 - Constitutional Appears: Well - Head Exam Head Exam: ATRAUMATIC, NORMAL INSPECTION, NORMOCEPHALIC - Eye Exam Eye Exam: EOMI, Normal appearance, PERRL Pupil Exam: NORMAL ACCOMODATION, PERRL - ENT Exam ENT Exam: Mucous Membranes Moist, Normal Exam - Neck Exam Neck Exam: Full ROM, Normal Inspection. absent: Lymphadenopathy - Respiratory Exam Respiratory Exam: Clear to Ausculation Bilateral, NORMAL BREATHING PATTERN - Cardiovascular Exam Cardiovascular Exam: REGULAR RHYTHM, +S1, +S2. absent: Murmur - GI/Abdominal Exam GI & Abdominal Exam: Soft, Normal Bowel Sounds. absent: Tenderness - Rectal Exam Rectal Exam: Deferred - Extremities Exam Extremities Exam: Full ROM, Normal Capillary Refill, Normal Inspection. absent : Joint Swelling, Pedal Edema - Back Exam Back Exam: NORMAL INSPECTION Assessment and Plan (1) Subdural hematoma Status: Acute (2) Dizziness Status: Acute (3) General medical exam Status: Acute (4) History of hypertension Status: Acute (5) Sinusitis Status: Acute (6) Uncontrolled hypertension Status: Acute (7) Upper extremity pain Status: Acute (8) Viral exanthem Status: Acute (9) Viral syndrome Status: Acute - Assessment and Plan (Free Text) Plan: Patient examined. Patient better. Continue pain management. Continue supportive care. Continue antihypertensive medications.
[2017-06-10] MEDS: SODIUM CHLORIDE 0.9% IVPB SCH ×2 (05:38→17:58)
[2017-06-10] MEDS: LEVETIRACETAM IVPB SCH ×2 (05:38→17:58)
[2017-06-10] MEDS: Pantoprazole 40 mg EC Tab PO SCH (10:55)
--- NOTE | 2017-06-10 17:06 | CP.PCM.PN ---
Subjective - Date & Time of Evaluation Date of Evaluation: 06/10/17 Time of Evaluation: 10:20 - Subjective Subjective: clinically same Objective - Vital Signs/Intake and Output Vital Signs (last 24 hours): Temp Pulse Resp BP Pulse Ox 98.5 F 84 20 120/80 97 06/10/17 07:50 06/10/17 07:50 06/10/17 07:50 06/10/17 07:50 06/10/17 07:50 Intake and Output: 06/10/17 06/10/17 06:59 18:59 Intake Total 490 Output Total 200 Balance 290 - Medications Medications: Current Medications Acetaminophen (Tylenol 325mg Tab) 650 mg PO Q6 PRN PRN Reason: Pain, Mild (1-3) Last Admin: 06/10/17 11:25 Dose: 650 mg Finasteride (Proscar) 5 mg PO DAILY [facility] Last Admin: 06/10/17 10:55 Dose: 5 mg Hydralazine HCl (Apresoline) 10 mg IVP Q6H PRN PRN Reason: Systolic Blood Pressure Last Admin: 06/07/17 22:42 Dose: 10 mg Hydrochlorothiazide (Microzide) 12.5 mg PO DAILY [facility] Last Admin: 06/10/17 10:54 Dose: 12.5 mg Levetiracetam 500 mg/ Sodium (Chloride) 155 mls @ 500 mls/hr IVPB Q12H [facility] Last Admin: 06/10/17 05:38 Dose: 500 mls/hr Labetalol HCl (Trandate) 20 mg IVP Q4 PRN PRN Reason: Systolic Blood Pressure Last Admin: 06/08/17 00:00 Dose: 20 mg Losartan Potassium (Cozaar) 50 mg PO DAILY [facility] Last Admin: 06/10/17 10:54 Dose: 50 mg Morphine Sulfate (Morphine) 2 mg IVP Q3 PRN PRN Reason: Pain, moderate (4-7) Last Admin: 06/09/17 00:17 Dose: 2 mg Oxycodone/Acetaminophen (Percocet 5/325 Mg Tab) 1 tab PO Q8H PRN PRN Reason: Pain, severe (8-10) Stop: 06/12/17 12:53 Last Admin: 06/09/17 21:27 Dose: 1 tab Pantoprazole Sodium (Protonix Ec Tab) 40 mg PO DAILY [facility] Last Admin: 06/10/17 10:55 Dose: 40 mg - Labs Labs: 06/08/17 06:29 06/08/17 06:29 PT 14.3 SECONDS (9.7-12.2) H 06/03/17 18:43 INR 1.3 06/03/17 18:43 APTT 31 SECONDS (21-34) 06/03/17 18:43 - Constitutional Appears: Well - Head Exam Head Exam: ATRAUMATIC, NORMAL INSPECTION, NORMOCEPHALIC - Eye Exam Eye Exam: EOMI, Normal appearance, PERRL Pupil Exam: NORMAL ACCOMODATION, PERRL - ENT Exam ENT Exam: Mucous Membranes Moist, Normal Exam - Neck Exam Neck Exam: Full ROM, Normal Inspection. absent: Lymphadenopathy - Respiratory Exam Respiratory Exam: Clear to Ausculation Bilateral, NORMAL BREATHING PATTERN - Cardiovascular Exam Cardiovascular Exam: REGULAR RHYTHM, +S1, +S2. absent: Murmur - GI/Abdominal Exam GI & Abdominal Exam: Soft, Normal Bowel Sounds. absent: Tenderness - Rectal Exam Rectal Exam: Deferred - Extremities Exam Extremities Exam: Full ROM, Normal Capillary Refill, Normal Inspection. absent : Joint Swelling, Pedal Edema - Back Exam Back Exam: NORMAL INSPECTION Assessment and Plan (1) Subdural hematoma Status: Acute (2) Dizziness Status: Acute (3) General medical exam Status: Acute (4) History of hypertension Status: Acute (5) Sinusitis Status: Acute (6) Uncontrolled hypertension Status: Acute (7) Upper extremity pain Status: Acute (8) Viral exanthem Status: Acute (9) Viral syndrome Status: Acute - Assessment and Plan (Free Text) Plan: Patient examined. Patient better. Continue pain management, antihypertensive medications. Continue supportive care.
[2017-06-11] MEDS: SODIUM CHLORIDE 0.9% IVPB SCH ×2 (05:27→17:23)
[2017-06-11] MEDS: LEVETIRACETAM IVPB SCH ×2 (05:27→17:23)
[2017-06-11] MEDS: Pantoprazole 40 mg EC Tab PO SCH (09:05)
--- NOTE | 2017-06-11 09:52 | PN ---
DATE: 06/11/2017 NEUROLOGICAL PROBLEM: Subdural hematoma evacuation. PHYSICAL EXAMINATION: VITAL SIGNS: Blood pressure 103/70, mean arterial pressure of 81, respiratory rate 16, and temperature afebrile. NEUROLOGIC: The patient is comfortable, communicable only in Ethiopian. He moves all 4 extremities. No seizures during the admission as well as following surgery. Continue present management. The patient is neurologically stable. If change in status please do call me, otherwise I am signing him off for follow up. Seven Greene MD
--- NOTE | 2017-06-11 15:36 | CP.PCM.PN ---
Subjective - Date & Time of Evaluation Date of Evaluation: 06/11/17 Time of Evaluation: 15:36 - Subjective Subjective: PATIENT WAS ADMITTED FOR S/P CRAINOTOMY; AAOX3 AT THE BEDSIDE; I SPOKE WITH THE DAUGHTER OVER THE PHONE BECAUSE PATIENT SPEAK ONLY SURINAM[place]; PATIENT DENIES SOB OR CHEST PAIN; DENIES HEADACHE OR BLURRED VISION; N/V NO SIGN OF DISTRESS NOTED Objective - Vital Signs/Intake and Output Vital Signs (last 24 hours): Temp Pulse Resp BP Pulse Ox 98.2 F 76 20 105/71 98 06/11/17 07:00 06/11/17 07:00 06/11/17 07:00 06/11/17 07:00 06/11/17 07:00 Intake and Output: 06/11/17 06/11/17 06:59 18:59 Intake Total 550 Output Total 350 Balance 200 - Medications Medications: Current Medications Acetaminophen (Tylenol 325mg Tab) 650 mg PO Q6 PRN PRN Reason: Pain, Mild (1-3) Last Admin: 06/10/17 22:47 Dose: 650 mg Finasteride (Proscar) 5 mg PO DAILY [facility] Last Admin: 06/11/17 09:05 Dose: 5 mg Hydralazine HCl (Apresoline) 10 mg IVP Q6H PRN PRN Reason: Systolic Blood Pressure Last Admin: 06/07/17 22:42 Dose: 10 mg Hydrochlorothiazide (Microzide) 12.5 mg PO DAILY [facility] Last Admin: 06/11/17 09:05 Dose: 12.5 mg Levetiracetam 500 mg/ Sodium (Chloride) 155 mls @ 500 mls/hr IVPB Q12H [facility] Last Admin: 06/11/17 05:27 Dose: 500 mls/hr Labetalol HCl (Trandate) 20 mg IVP Q4 PRN PRN Reason: Systolic Blood Pressure Last Admin: 06/08/17 00:00 Dose: 20 mg Losartan Potassium (Cozaar) 50 mg PO DAILY [facility] Last Admin: 06/11/17 09:05 Dose: 50 mg Oxycodone/Acetaminophen (Percocet 5/325 Mg Tab) 1 tab PO Q8H PRN PRN Reason: Pain, severe (8-10) Stop: 06/12/17 12:53 Last Admin: 06/09/17 21:27 Dose: 1 tab Pantoprazole Sodium (Protonix Ec Tab) 40 mg PO DAILY [facility] Last Admin: 06/11/17 09:05 Dose: 40 mg - Labs Labs: 06/08/17 06:29 06/08/17 06:29 PT 14.3 SECONDS (9.7-12.2) H 06/03/17 18:43 INR 1.3 06/03/17 18:43 APTT 31 SECONDS (21-34) 06/03/17 18:43 Assessment and Plan - Assessment and Plan (Free Text) Assessment: A/P PATIENT IS SEEN AND EXAMINED AT THE BEDSIDE; HESITANT AT FIRST TO GO TO [facility] BECAUSE OF THE DISTANCE AND WANTED TO BE DC HOME AMA INSTEAD THE HOUSE DOCTOR WAS MARCELLUS WHO EXPLAIN IN DETAIL THE RISK THEN PATIENT CHANGE HIS MIND AND AGREE TO GO TO [facility] QUIN NOTED DRY AND INTACT NO SIGN OF INFECTION AND DR WOODSON WILL REMOVE LATER OUT PATIENT DISCUSS WITH DR LOPEZ WHO AGREE WITH THE PLAN DISCHARGE TO [facility] FOR [facility] ADMITTED UNDER DR Xavier LOPEZ SERVICE FOLLOW UP WITH DR Xavier LOPEZ IN HIS OFFICE ----CALL HIS OFFICE FOR APPOINTMENT FOLLOW WITH DR WOODSON IN HIS OFFICE FOR QUIN REMOVAL ---CALL HIS OFFICE SOON DISCHARGE FOR APPOINTMENT CONTINUE ALL YOUR HOME MEDICATION PER MED RECS NEW RX GIVEN : KEPPRA 500 MG PO Q12H CALL DR LOPEZ OR DR WOODSON FOR FURTHER QUESTION CALL YOUR PMD OR GO TO EMERGENCY ROOM IF SYMPTOMS RETURN OR WORSENING
--- NOTE | 2017-06-11 19:41 | CP.PCM.PN ---
Subjective - Date & Time of Evaluation Date of Evaluation: 06/11/17 Time of Evaluation: 11:40 - Subjective Subjective: clinically same Objective - Vital Signs/Intake and Output Vital Signs (last 24 hours): Temp Pulse Resp BP Pulse Ox 98.3 F 86 20 109/72 97 06/11/17 15:16 06/11/17 15:16 06/11/17 15:16 06/11/17 15:16 06/11/17 15:16 - Medications Medications: Current Medications Acetaminophen (Tylenol 325mg Tab) 650 mg PO Q6 PRN PRN Reason: Pain, Mild (1-3) Last Admin: 06/10/17 22:47 Dose: 650 mg Finasteride (Proscar) 5 mg PO DAILY [facility] Last Admin: 06/11/17 09:05 Dose: 5 mg Hydralazine HCl (Apresoline) 10 mg IVP Q6H PRN PRN Reason: Systolic Blood Pressure Last Admin: 06/07/17 22:42 Dose: 10 mg Hydrochlorothiazide (Microzide) 12.5 mg PO DAILY [facility] Last Admin: 06/11/17 09:05 Dose: 12.5 mg Levetiracetam 500 mg/ Sodium (Chloride) 155 mls @ 500 mls/hr IVPB Q12H [facility] Last Admin: 06/11/17 17:23 Dose: 500 mls/hr Labetalol HCl (Trandate) 20 mg IVP Q4 PRN PRN Reason: Systolic Blood Pressure Last Admin: 06/08/17 00:00 Dose: 20 mg Losartan Potassium (Cozaar) 50 mg PO DAILY [facility] Last Admin: 06/11/17 09:05 Dose: 50 mg Oxycodone/Acetaminophen (Percocet 5/325 Mg Tab) 1 tab PO Q8H PRN PRN Reason: Pain, severe (8-10) Stop: 06/12/17 12:53 Last Admin: 06/09/17 21:27 Dose: 1 tab Pantoprazole Sodium (Protonix Ec Tab) 40 mg PO DAILY [facility] Last Admin: 06/11/17 09:05 Dose: 40 mg - Labs Labs: 06/08/17 06:29 06/08/17 06:29 PT 14.3 SECONDS (9.7-12.2) H 06/03/17 18:43 INR 1.3 06/03/17 18:43 APTT 31 SECONDS (21-34) 06/03/17 18:43 Assessment and Plan (1) Subdural hematoma Status: Acute (2) Dizziness Status: Acute (3) General medical exam Status: Acute (4) History of hypertension Status: Acute (5) Sinusitis Status: Acute (6) Uncontrolled hypertension Status: Acute (7) Upper extremity pain Status: Acute (8) Viral exanthem Status: Acute (9) Viral syndrome Status: Acute
[2017-06-12] MEDS: SODIUM CHLORIDE 0.9% IVPB SCH ×2 (05:32→17:01)
[2017-06-12] MEDS: LEVETIRACETAM IVPB SCH ×2 (05:32→17:01)
[2017-06-12] MEDS: Pantoprazole 40 mg EC Tab PO SCH (09:26)
[2017-06-12] MEDS: (Novolog) Insulin Aspart, Recombinant 100 u/ml 10 ml vial SC SCH ×4 (12:58→21:46)
[2017-06-12 16:07] VITALS: BP 120/69; PULSE 82; TEMP 98; O2SAT 97
--- NOTE | 2017-06-12 17:43 | CP.PCM.PN ---
Subjective - Date & Time of Evaluation Date of Evaluation: 06/12/17 Time of Evaluation: 11:00 - Subjective Subjective: clinically same Objective - Vital Signs/Intake and Output Vital Signs (last 24 hours): Temp Pulse Resp BP Pulse Ox 98 F 82 20 120/69 97 06/12/17 15:25 06/12/17 15:25 06/12/17 15:25 06/12/17 15:25 06/12/17 15:25 Intake and Output: 06/12/17 06/12/17 06:59 18:59 Intake Total 715 390 Output Total 300 250 Balance 415 140 - Medications Medications: Current Medications Acetaminophen (Tylenol 325mg Tab) 650 mg PO Q6 PRN PRN Reason: Pain, Mild (1-3) Last Admin: 06/12/17 12:53 Dose: 650 mg Finasteride (Proscar) 5 mg PO DAILY [facility] Last Admin: 06/12/17 09:26 Dose: 5 mg Hydralazine HCl (Apresoline) 10 mg IVP Q6H PRN PRN Reason: Systolic Blood Pressure Last Admin: 06/07/17 22:42 Dose: 10 mg Hydrochlorothiazide (Microzide) 12.5 mg PO DAILY [facility] Last Admin: 06/12/17 09:25 Dose: 12.5 mg Levetiracetam 500 mg/ Sodium (Chloride) 155 mls @ 500 mls/hr IVPB Q12H [facility] Last Admin: 06/12/17 17:01 Dose: 500 mls/hr Insulin Aspart (Novolog) 0 unit SC ACHS AYDEE PRN Reason: Protocol Last Admin: 06/12/17 16:58 Dose: Not Given Labetalol HCl (Trandate) 20 mg IVP Q4 PRN PRN Reason: Systolic Blood Pressure Last Admin: 06/08/17 00:00 Dose: 20 mg Losartan Potassium (Cozaar) 50 mg PO DAILY [facility] Last Admin: 06/12/17 09:26 Dose: 50 mg Pantoprazole Sodium (Protonix Ec Tab) 40 mg PO DAILY [facility] Last Admin: 06/12/17 09:26 Dose: 40 mg - Labs Labs: 06/08/17 06:29 06/08/17 06:29 PT 14.3 SECONDS (9.7-12.2) H 06/03/17 18:43 INR 1.3 06/03/17 18:43 APTT 31 SECONDS (21-34) 06/03/17 18:43 - Constitutional Appears: Well - Head Exam Head Exam: ATRAUMATIC, NORMAL INSPECTION, NORMOCEPHALIC - Eye Exam Eye Exam: EOMI, Normal appearance, PERRL Pupil Exam: NORMAL ACCOMODATION, PERRL - ENT Exam ENT Exam: Mucous Membranes Moist, Normal Exam - Neck Exam Neck Exam: Full ROM, Normal Inspection. absent: Lymphadenopathy - Respiratory Exam Respiratory Exam: Decreased Breath Sounds - Cardiovascular Exam Cardiovascular Exam: REGULAR RHYTHM, +S1, +S2 - GI/Abdominal Exam GI & Abdominal Exam: Soft, Diminished Bowel Sounds - Rectal Exam Rectal Exam: Deferred Assessment and Plan (1) Subdural hematoma Status: Acute (2) Dizziness Status: Acute (3) General medical exam Status: Acute (4) History of hypertension Status: Acute (5) Sinusitis Status: Acute (6) Uncontrolled hypertension Status: Acute (7) Upper extremity pain Status: Acute (8) Viral exanthem Status: Acute (9) Viral syndrome Status: Acute
== END 2017-06-12 22:33 | DRG 25 ==
LOC: C.ER 17:05 → C.9E 18:55 → C.6T 06-04 20:55 → C.9S 06-06 12:07 → C.9I 06-06 16:52 → C.6T 06-09 13:38
PROVIDERS: ADMIT Internal Medicine Nephrology; ATTEND Internal Medicine Nephrology
PROC: 00Q20ZZ Repair Dura Mater, Open Approach (ICD-10-PCS; 2017-06-06)
PROC: 00C40ZZ Extirpation of Matter from Intracranial Subdural Space, Open Approach (ICD-10-PCS; principal; 2017-06-06 12:00)
DX: S06.5X0A Traumatic subdural hemorrhage without loss of consciousness, initial encounter (principal); G93.5 Compression of brain; E11.9 Type 2 diabetes mellitus without complications; J32.9 Chronic sinusitis, unspecified; E78.00 Pure hypercholesterolemia, unspecified; B09 Unspecified viral infection characterized by skin and mucous membrane lesions; I10 Essential (primary) hypertension; V89.2XXA Person injured in unspecified motor-vehicle accident, traffic, initial encounter; Y92.410 Unspecified street and highway as the place of occurrence of the external cause; N40.0 Benign prostatic hyperplasia without lower urinary tract symptoms

== ENCOUNTER 2017-07-04 12:49 | Emergency (ER) | payer MEDICARE, OTHER ==
[2017-07-04 13:03] VITALS: BMI 27.8
[2017-07-04 13:05] VITALS: BP 145/90; PULSE 76; TEMP 97.8; O2SAT 98
[2017-07-04 13:27] VITALS: RESP 18
--- NOTE | 2017-07-04 14:10 | C.PDOC ---
History Of Present Illness 67 yo male requesting staple removal. Pt notes he had craniotomy on 06/06/17, his jennifer were removed last week at [facility] but they forgot one therefore he is requesting removal. Denies fever, discharge, swelling or any symptoms to the incision. Time Seen by Provider: 07/04/17 13:11 Chief Complaint (Nursing): Suture/Staple Removal History Per: Patient, Family History/Exam Limitations: no limitations Past Medical History Vital Signs: Last Vital Signs Temp 97.8 F 07/04/17 13:03 Pulse 76 07/04/17 13:03 Resp 18 07/04/17 13:27 BP 145/90 07/04/17 13:03 Pulse Ox 98 07/04/17 14:10 - Medical History PMH: Benign Prostatic Hyperplasia, Diabetes, HTN, Hypercholesterolemia Denies: HIV, Chronic Kidney Disease - [facility] Procedures COMMUNICATIVE/COGNITIVE INTEGRATION SKILLS TREATMENT (06/12/17) DRESSING TECHNIQUES TREATMENT (06/12/17) EXTIRPATION OF MATTER FROM SUBDURAL SPACE, OPEN APPROACH (06/03/17) FEEDING/EATING TREATMENT (06/12/17) GAIT TRAINING/AMBULAT TREATMENT USING ASSIST EQUIPMENT (06/12/17) GROOMING/PERSONAL HYGIENE TREATMENT (06/12/17) REPAIR DURA MATER, OPEN APPROACH (06/03/17) THERAPEUTIC EXERCISE TREATMENT OF MUSCULOSK UP BACK/UE (06/12/17) Family History: States: Unknown Family Hx - Social History Hx Tobacco Use: No Hx Alcohol Use: No Hx Substance Use: No - Immunization History Hx Tetanus Toxoid Vaccination: No Hx Influenza Vaccination: No Hx Pneumococcal Vaccination: No Review Of Systems Constitutional: Negative for: Fever Neurological: Negative for: Weakness, Numbness Physical Exam - Physical Exam Appears: Well, Non-toxic, No Acute Distress Skin: Warm, Dry, Other ((+) 8 cm healing incision to left superior scalp with one staple . No dehiscense, no wound seperation, no erythema, no discharge) Head: Normacephalic, No Tenderness, No Swelling Eye(s): bilateral: Normal Inspection, EOMI Nose: Normal Oral Mucosa: Moist Neck: Normal, Normal ROM, Supple Chest: Symmetrical Respiratory: No Accessory Muscle Use Back: Normal Inspection Extremity: Normal ROM Neurological/Psych: Oriented x3, Normal Speech, Normal Cognition ED Course And Treatment O2 Sat by Pulse Oximetry: 98 Progress Note: Wound looks intact, no seperation. Staple removed. Instructed strict follow up with surgeon and PMD. Disposition - Disposition Disposition: HOME/ ROUTINE Disposition Time: 13:19 Condition: STABLE Additional Instructions: Follow up with your PMD and the surgeon as scheduled. Instructions: Acute Wound Care (ED) Forms: [facility] (Syrian) Print Language: POLISH - Clinical Impression Clinical Impression: Removal of suture
== END 2017-07-04 13:27 | disposition home or self-care (01) ==
LOC: C.ER 12:49
DX: Z48.02 Encounter for removal of sutures (principal); E11.9 Type 2 diabetes mellitus without complications; E78.00 Pure hypercholesterolemia, unspecified; I10 Essential (primary) hypertension; N40.0 Benign prostatic hyperplasia without lower urinary tract symptoms

== ENCOUNTER 2018-01-14 01:37 | Emergency (ER) | payer MEDICARE, OTHER ==
[2018-01-14 01:37] VITALS: BMI 27.8
[2018-01-14 01:45] VITALS: BP 118/78; PULSE 69; TEMP 98.3
[2018-01-14 01:48] VITALS: RESP 20; O2SAT 98
--- NOTE | 2018-01-14 03:24 | C.PDOC ---
History Of Present Illness 67 year old male presents to the ED c/o constipation for the past 3 days. Patient reports he tried using an enema today with no relief. Patient reports he has not tried taking OTc laxatives. Patient denies fever, chills, nausea, vomit, diarrhea. Chief Complaint (Nursing): GI Problem History Per: Patient History/Exam Limitations: no limitations Onset/Duration Of Symptoms: Days (3) Current Symptoms Are (Timing): Still Present Location Of Pain/Discomfort: Diffuse Radiation Of Pain To:: None Quality Of Discomfort: "Pain" Associated Symptoms: Constipation Alleviating Factors: None Recent travel outside of the [place]: No Additional History Per: Patient Past Medical History Reviewed: Historical Data, Nursing Documentation, Vital Signs Vital Signs: Last Vital Signs Temp 98.3 F 01/14/18 01:45 Pulse 69 01/14/18 01:45 Resp 20 01/14/18 01:45 BP 118/78 01/14/18 01:45 Pulse Ox 98 01/14/18 03:25 - Medical History PMH: Benign Prostatic Hyperplasia, Diabetes, HTN, Hypercholesterolemia Denies: HIV, Chronic Kidney Disease Surgical History: No Surg Hx - [facility] Procedures COMMUNICATIVE/COGNITIVE INTEGRATION SKILLS TREATMENT (06/12/17) DRESSING TECHNIQUES TREATMENT (06/12/17) EXTIRPATION OF MATTER FROM SUBDURAL SPACE, OPEN APPROACH (06/03/17) FEEDING/EATING TREATMENT (06/12/17) GAIT TRAINING/AMBULAT TREATMENT USING ASSIST EQUIPMENT (06/12/17) GROOMING/PERSONAL HYGIENE TREATMENT (06/12/17) REPAIR DURA MATER, OPEN APPROACH (06/03/17) THERAPEUTIC EXERCISE TREATMENT OF MUSCULOSK UP BACK/UE (06/12/17) Family History: States: Unknown Family Hx - Social History Hx Tobacco Use: No Hx Alcohol Use: No Hx Substance Use: No - Immunization History Hx Tetanus Toxoid Vaccination: No Hx Influenza Vaccination: No Hx Pneumococcal Vaccination: No Review Of Systems Constitutional: Negative for: Fever, Chills Cardiovascular: Negative for: Chest Pain, Palpitations Respiratory: Negative for: Cough, Shortness of Breath Gastrointestinal: Positive for: Abdominal Pain, Constipation. Negative for: Nausea, Vomiting Musculoskeletal: Negative for: Back Pain Skin: Negative for: Rash Physical Exam - Physical Exam Appears: Non-toxic, No Acute Distress Skin: Normal Color, Warm, Dry Head: Atraumatic, Normacephalic Eye(s): bilateral: Normal Inspection Oral Mucosa: Moist Neck: Normal ROM, Supple Chest: Symmetrical Cardiovascular: Rhythm Regular Respiratory: Normal Breath Sounds, No Rales, No Rhonchi, No Wheezing Gastrointestinal/Abdominal: Soft, No Tenderness, No Guarding, No Rebound Extremity: Normal ROM, No Tenderness, No Swelling Neurological/Psych: Oriented x3, Normal Speech Gait: Steady ED Course And Treatment O2 Sat by Pulse Oximetry: 98 (ON RA) Pulse Ox Interpretation: Normal Medical Decision Making Medical Decision Making: Impression: constipation Plan: * Laxative for home Disposition - Disposition Referrals: [facility] [Outside] Disposition: HOME/ ROUTINE Disposition Time: 04:05 Condition: GOOD Prescriptions: Polyethylene Glycol 3350 [Miralax] 17 gm PO DAILY #3 powd.pack Instructions: High Fiber Diet, Constipation, Adult (DC) Forms: [employer] (Hungarian) Print Language: BELARUSIAN - Clinical Impression Clinical Impression: Constipation - Scribe Statement The provider has reviewed the documentation as recorded by the Scribe Brad Khan All medical record entries made by the Scribe were at my direction and personally dictated by me. I have reviewed the chart and agree that the record accurately reflects my personal performance of the history, physical exam, medical decision making, and the department course for this patient. I have also personally directed, reviewed, and agree with the discharge instructions and disposition.
== END 2018-01-14 02:31 | disposition home or self-care (01) ==
LOC: C.ER 01:37
DX: K59.00 Constipation, unspecified (principal)

== ENCOUNTER 2018-08-03 19:31 | Emergency (ER) | payer MEDICARE, OTHER ==
[2018-08-03 19:32] VITALS: BMI 27.8
[2018-08-03 19:44] VITALS: BP 169/75; PULSE 73; TEMP 97.9; O2SAT 99
--- NOTE | 2018-08-03 21:06 | C.PDOC ---
History Of Present Illness 68 y/o male presents to the ED complaining of recurrent headaches for the past month. 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 States he had an accident when [place] and developed a headache upon return, after which the clot was identified on CT scan. Patient reports he has been doing fine with recovery however over the last month developed headaches again. He notes current symptoms are similar to prior headaches before surgery. Headache is described as frontal, localized behind the left eye. Patient has not yet seen a doctor for this complaint. He takes Aleve occasionally for the pain, last dose was 3 days ago. Otherwise he denies any nausea, vomiting, fevers, chills, change in vision, dizziness, LOC, or recent fall/trauma. Time Seen by Provider: 08/03/18 20:16 Chief Complaint (Nursing): Headache History Per: Patient History/Exam Limitations: no limitations Onset/Duration Of Symptoms: Days Current Symptoms Are (Timing): Still Present Past Medical History Reviewed: Historical Data, Nursing Documentation, Vital Signs Vital Signs: Last Vital Signs Temp 97.9 F 08/03/18 19:40 Pulse 73 08/03/18 19:40 Resp 18 08/03/18 19:40 BP 169/75 H 08/03/18 19:40 Pulse Ox 99 08/03/18 19:40 - Medical History PMH: Benign Prostatic Hyperplasia, Diabetes, HTN, Hypercholesterolemia Denies: HIV, Chronic Kidney Disease Other Surgeries: Brain surgery - [facility] Procedures COMMUNICATIVE/COGNITIVE INTEGRATION SKILLS TREATMENT (06/12/17) DRESSING TECHNIQUES TREATMENT (06/12/17) EXTIRPATION OF MATTER FROM SUBDURAL SPACE, OPEN APPROACH (06/03/17) FEEDING/EATING TREATMENT (06/12/17) GAIT TRAINING/AMBULAT TREATMENT USING ASSIST EQUIPMENT (06/12/17) GROOMING/PERSONAL HYGIENE TREATMENT (06/12/17) REPAIR DURA MATER, OPEN APPROACH (06/03/17) THERAPEUTIC EXERCISE TREATMENT OF MUSCULOSK UP BACK/UE (06/12/17) Family History: States: Unknown Family Hx - Social History Hx Tobacco Use: No Hx Alcohol Use: Yes Hx Substance Use: No - Immunization History Hx Tetanus Toxoid Vaccination: No Hx Influenza Vaccination: No Hx Pneumococcal Vaccination: No Review Of Systems Constitutional: Negative for: Fever, Chills, Weakness Eyes: Negative for: Vision Change, Redness, Other (scleral icterus) ENT: Negative for: Mouth Swelling Cardiovascular: Negative for: Chest Pain Respiratory: Negative for: Cough, Shortness of Breath Gastrointestinal: Negative for: Nausea, Vomiting, Diarrhea Genitourinary: Negative for: Dysuria, Hematuria Musculoskeletal: Negative for: Back Pain Skin: Negative for: Rash Neurological: Positive for: Headache. Negative for: Weakness, Numbness, Change in Speech, Confusion, Dizziness Physical Exam - Physical Exam Appears: Well, Non-toxic, No Acute Distress Skin: Normal Color, Warm, No Rash Head: Atraumatic, Normacephalic Eye(s): bilateral: Normal Inspection (no scleral icterus), PERRL, EOMI Ear(s): Bilateral: Normal (no drainage) Oral Mucosa: Moist Neck: Normal ROM, Supple, Other (No meningeal signs) Chest: Symmetrical Cardiovascular: Rhythm Regular, Other (Normal S1,S2) Respiratory: No Rales, No Rhonchi, No Wheezing, Other (Lungs clear to auscultation) Gastrointestinal/Abdominal: Soft, No Distention Male Genital: Other (Ambulating with steady upright gait) Extremity: Bilateral: Atraumatic, Normal ROM Pulses: Left Radial: Normal (2+), Right Radial: Normal (2+) Neurological/Psych: Oriented x3, Normal Speech, Normal Cognition, Normal Cranial Nerves (2-12 grossly intact), No Cerebellar Signs, Normal Motor (5/5 strength t hroughout), Normal Sensation (intact to light touch throughout), Other (No focal deficits) Gait: Steady ED Course And Treatment O2 Sat by Pulse Oximetry: 99 (RA) Pulse Ox Interpretation: Normal Medical Decision Making Medical Decision Making: Impression: Headache, hx of brain surgery Plan: Given patients history, will obtain CT Head. Disposition Counseled Patient/Family Regarding: Studies Performed, Diagnosis, Need For Followup, Rx Given - Disposition Referrals: Iron Bowser MD [Staff Provider] - Disposition: HOME/ ROUTINE Disposition Time: 22:49 Condition: STABLE Prescriptions: Acetaminophen/Butalbital/Caf [Fioricet] 1 tab PO QID PRN 5 Days tab PRN Reason: Headache Instructions: Headache, Adult Forms: Gen Discharge Inst Uzbek, [facility] (Uzbek) Print Language: UZBEK - Clinical Impression Clinical Impression: Headache - PA / ABORIGINAL EDUCATION TEACHER / Resident Statement MD/DO has reviewed & agrees with the documentation as recorded. - Scribe Statement The provider has reviewed the documentation as recorded by the Scribe Nathalie Hager All medical record entries made by the Jaclyn were at my direction and personally dictated by me. I have reviewed the chart and agree that the record accurately reflects my personal performance of the history, physical exam, medical decision making, and the department course for this patient. I have also personally directed, reviewed, and agree with the discharge instructions and disposition.
[2018-08-03 23:17] VITALS: RESP 20
--- NOTE | 2018-08-04 09:34 | CT ---
Date of service: 08/03/2018 PROCEDURE: CT HEAD WITHOUT CONTRAST. HISTORY: headache COMPARISON: 06/07/2017 TECHNIQUE: Axial computed tomography images were obtained through the head/brain without intravenous contrast. Radiation dose: Total exam DLP = 995.11 mGy-cm. This CT exam was performed using one or more of the following dose reduction techniques: Automated exposure control, adjustment of the mA and/or kV according to patient size, and/or use of iterative reconstruction technique. FINDINGS: HEMORRHAGE: No intracranial hemorrhage. BRAIN: Postsurgical changes from a prior left frontotemporal craniotomy. Confluent low attenuation again noted within the left frontal lobe which may be encephalomalacia from prior left frontal pole contusion. Previously seen left-sided subdural hematoma has resolved. Scattered focal lucencies in the subcortical and periventricular white matter suggestive for chronic microvascular ischemic change. VENTRICLES: Unremarkable. No hydrocephalus. CALVARIUM: Unremarkable. PARANASAL SINUSES: Unremarkable as visualized. No significant inflammatory changes. MASTOID AIR CELLS: Unremarkable as visualized. No inflammatory changes. OTHER FINDINGS: Beam hardening and motion artifact near the skull base limits evaluation. IMPRESSION: No acute intracranial abnormality. Postsurgical changes from a prior left frontotemporal craniotomy. Confluent low attenuation again noted within the left frontal lobe which may be encephalomalacia from prior left frontal pole contusion. Previously seen left-sided subdural hematoma has resolved. Scattered focal lucencies in the subcortical and periventricular white matter suggestive for chronic microvascular ischemic change. If symptoms persists, consider correlation with MRI. A preliminary report was generated at 10:31 p.m. on 08/03/[address] Dominik Massey from [employer].
== END 2018-08-03 23:16 | disposition home or self-care (01) ==
LOC: C.ER 19:31
DX: R51 Headache (principal)